=== PATIENT | female | born 1960 | race Caucasian/White ===

== ENCOUNTER 2021-03-08 09:20 | Inpatient (IN) | payer MEDICARE, OTHER ==
[2021-03-08] VITALS (27 sets, daily range): BP systolic 61–140; BP diastolic 30–98
[~2021-03-08] VITALS: Ht 162.6 cm; Wt 97.1 kg
[2021-03-08] MEDS ORDERED: DEXAMETHASONE 10 MG/ML VIAL IV ONE (09:30)
[2021-03-08] MEDS ORDERED: CEFTRIAXONE 1 G PREMIX 50 ML IV ONE (09:30)
[2021-03-08] MEDS ORDERED: AZITHROMYCIN 500 MG in DEXT 5% WATER 250 ML IV ONE (09:30)
[2021-03-08 10:04] LABS: BASOPHILS % 0.7 % (0.0-2.0); EOSINOPHILS % 0.2 % (0.0-5.0); HEMOGLOBIN. 12.2 g/dL (12.0-16.0); LYMPHOCYTES % 7.2 % (20.0-50.0); MEAN CORPUSCULAR HEMOGLOBIN 23.2 pg (28.0-32.0); MEAN PLATELET VOLUME 8.5 fl (7.4-10.4); MONOCYTES % 4.4 % (2.0-8.0); NEUTROPHILS % 87.5 % (40.0-76.0); PLATELET 352 x1000/uL (130-400); RED BLOOD CELL COUNT 5.27 mill/uL (4.2-5.4); RED CELL DISTRIBUTION WIDTH 21.1 % (11.6-14.6)
[2021-03-08 10:12] LABS: CHLORIDE 107 mEq/L (98-107)
[2021-03-08 10:14] LABS: D-DIMER 0.89 mg/L FEU (<0.50); PROTHROMBIN TIME 10.9 sec (9.6-11.0)
[2021-03-08 10:18] LABS: C REACTIVE PROTEIN QUANT 3.1 mg/L (0.0-3.0)
[2021-03-08 10:21] LABS: CREATINE KINASE 65 IU/L (26-192)
[2021-03-08] MEDS ORDERED: AZITHROMYCIN 500 MG in DEXT 5% WATER 250 ML IV SCH (10:30)
[2021-03-08 10:39] LABS: BG BASE EXCESS -5.3 mmol/L (-2.0-2.0); BG CARBOXYHEMOGLOBIN 3.4 % (0.5-1.5); BG DEOXYHEMOGLOBIN 7.5 % (0.0-5.0); BG HCO3 ACT 24.5 mmol/L (22.0-26.0); BG METHEMOGLOBIN 0.2 % (0.0-1.5); BG OXYGEN SATURATION 92.2 % (92.0-98.5); BG OXYHEMOGLOBIN 88.9 % (94.0-97.0); BG PH 7.168 (7.350-7.450); BG PO2 73.8 mmHg (75.0-100.0); BG SAMPLE SITE RIGHT RADIAL; BG TOTAL HEMOGLOBIN 13.2 g/dL (12.0-18.0); BG VENT MODE MASK - BIPAP
[2021-03-08] MEDS ORDERED: INSULIN REGULAR (HUMULIN R) 300UNITS/3ML VIAL IV ONE (10:45)
[2021-03-08] MEDS ORDERED: DEXTROSE 50% WATER 50ML SYRINGE IV ONE (10:45)
[2021-03-08] MEDS ORDERED: SODIUM BICARBONATE 8.4% 1 MEQ/ML 50ML SYR IV ONE (10:45)
[2021-03-08] MEDS ORDERED: CALCIUM CHLORIDE 1GM/10ML SYR IV ONE (10:45)
[2021-03-08] MEDS ORDERED: ALBUTEROL (0.083%) 2.5MG/3ML NEB HHN ONE (10:45)
[2021-03-08] MEDS ORDERED: LIDOCAINE HCL 1% 20ML VIAL (Pyxis) INJ ONE (11:22)
[2021-03-08] MEDS ORDERED: PIPERACILLIN/TAZ 3.375G PREMIX 50 ML IV NR (11:45)
[2021-03-08] MEDS ORDERED: CLONIDINE 0.1MG TABLET PO PRN (11:45)
[2021-03-08] MEDS ORDERED: ACETAMINOPHEN 325MG TABLET PO PRN (11:45)
[2021-03-08] MEDS ORDERED: ONDANSETRON HCL 4MG/2ML INJ IV PRN (11:45)
[2021-03-08] MEDS ORDERED: ENOXAPARIN 40MG/0.4ML SYR SUBCUT SCH (12:00)
[2021-03-08] MEDS ORDERED: VANCOMYCIN 1 G PREMIX 200 ML IV NR ×2 (12:00→14:00)
[2021-03-08 12:20] LABS: HEPATITIS B SURFACE ANTIGEN NEGATIVE
[2021-03-08 12:42] LABS: BG BASE EXCESS -3.5 mmol/L (-2.0-2.0); BG CARBOXYHEMOGLOBIN 2.6 % (0.5-1.5); BG DEOXYHEMOGLOBIN 9.4 % (0.0-5.0); BG HCO3 ACT 28.4 mmol/L (22.0-26.0); BG METHEMOGLOBIN 0.3 % (0.0-1.5); BG OXYGEN SATURATION 90.3 % (92.0-98.5); BG OXYHEMOGLOBIN 87.7 % (94.0-97.0); BG PCO2 92.1 mmHg (35.0-45.0); BG PH 7.107 (7.350-7.450); BG PO2 72.1 mmHg (75.0-100.0); BG SAMPLE SITE RIGHT RADIAL; BG TOTAL HEMOGLOBIN 13.5 g/dL (12.0-18.0); BG VENT MODE MASK - BIPAP
[2021-03-08 15:13] LABS: CREATINE KINASE 54 IU/L (26-192)
[2021-03-08 15:14] LABS: CREATINE KINASE MB FRACTION 2.1 ng/mL (0.5-3.6)
[2021-03-08] MEDS ORDERED: VANCOMYCIN 2,000 MG in DEXT 5% WATER 500 ML IV NR (16:00)
[2021-03-08] MEDS ORDERED: ATOR20TA65 PO (16:52)
[2021-03-08] MEDS ORDERED: RISP1 PO (16:52)
[2021-03-08] MEDS ORDERED: SIMV-46 PO (16:52)
[2021-03-08] MEDS ORDERED: ASPI-1406 PO (16:52)
[2021-03-08] MEDS ORDERED: BENA10TA74 PO (16:52)
[2021-03-08] MEDS ORDERED: HYDR50CA5 PO (16:52)
[2021-03-08] MEDS ORDERED: RISP05 MT (16:52)
[2021-03-08] MEDS ORDERED: TOPUD MT (16:52)
[2021-03-08] MEDS ORDERED: OLME20TA22 PO (16:52)
[2021-03-08] MEDS ORDERED: ESCI20TA37 PO (16:53)
[2021-03-08] MEDS ORDERED: LORA10TA7 PO (16:53)
[2021-03-08] MEDS ORDERED: METF-416 MT (16:53)
[2021-03-08] MEDS ORDERED: TRIC160 MT (16:53)
[2021-03-08] MEDS ORDERED: HYDR12.54 PO (16:53)
[2021-03-08] MEDS ORDERED: SERT-112 PO (16:53)
[2021-03-08] MEDS: IPRATROPIUM/ALBUTEROL 0.5-3(2.5)MG/3ML NEB HHN SCH ×2 (17:00→20:06)
[2021-03-08] MEDS ORDERED: DEXTROSE 50% WATER 50ML SYRINGE IV PRN (17:30)
[2021-03-08] MEDS: INSULIN LISPRO 100 UNITS/ML SUBCUT SCH ×2 (18:00→23:35)
[2021-03-08] MEDS: METHYLPREDNISOLONE SOD SUCC 40 MG/ML VIAL IV SCH ×2 (18:00→18:04)
[2021-03-08] MEDS: PANTOPRAZOLE SODIUM 40 MG/VIAL IV SCH (18:05)
[2021-03-08] MEDS: BLOOD SUGAR DIAGNOSTIC STRIP TEST SCH ×2 (18:06→23:32)
[2021-03-08] MEDS: DEXT 5%/0.9% NACL 1,000 ML IV SCH (18:06)
[2021-03-08 18:27] LABS: BG BASE EXCESS -2.6 mmol/L (-2.0-2.0); BG DEOXYHEMOGLOBIN 5.2 % (0.0-5.0); BG FRACTION INSPIRED OXYGEN 60; BG HCO3 ACT 27.5 mmol/L (22.0-26.0); BG METHEMOGLOBIN 0.2 % (0.0-1.5); BG OXYGEN SATURATION 94.7 % (92.0-98.5); BG OXYHEMOGLOBIN 93.6 % (94.0-97.0); BG PCO2 75.5 mmHg (35.0-45.0); BG PH 7.179 (7.350-7.450); BG PO2 81.3 mmHg (75.0-100.0); BG SAMPLE SITE RIGHT RADIAL; BG TOTAL HEMOGLOBIN 13.2 g/dL (12.0-18.0); BG VENT MODE MASK - BIPAP
[2021-03-08] MEDS ORDERED: INSULIN LISPRO 100 UNITS/ML SUBCUT SCH (21:00)
[2021-03-08] MEDS ORDERED: PIPERACILLIN/TAZOBACTAM 3.375G in DEXT 5% WATER 50ML IV SCH (22:00)
[2021-03-08] MEDS: PIPERACILLIN/TAZOBACTAM 3.375G in DEXT 5% WATER 50ML IV SCH (23:04)
[2021-03-09] VITALS (58 sets, daily range): BP systolic 96–150; BP diastolic 50–99
[2021-03-09 00:02] LABS: CREATINE KINASE 64 IU/L (26-192)
[2021-03-09 00:03] LABS: CREATINE KINASE MB FRACTION 1.3 ng/mL (0.5-3.6)
[2021-03-09] MEDS: IPRATROPIUM/ALBUTEROL 0.5-3(2.5)MG/3ML NEB HHN SCH ×7 (00:05→20:19)
[2021-03-09] MEDS: DEXT 5%/0.9% NACL 1,000 ML IV SCH ×2 (01:30→08:19)
[2021-03-09] MEDS: METHYLPREDNISOLONE SOD SUCC 40 MG/ML VIAL IV SCH ×4 (01:50→17:23)
[2021-03-09] MEDS: PIPERACILLIN/TAZOBACTAM 3.375G in DEXT 5% WATER 50ML IV SCH ×3 (05:01→21:01)
[2021-03-09] MEDS: INSULIN LISPRO 100 UNITS/ML SUBCUT SCH ×3 (05:09→17:23)
[2021-03-09] MEDS: BLOOD SUGAR DIAGNOSTIC STRIP TEST SCH ×3 (05:09→17:23)
[2021-03-09] MEDS: ENOXAPARIN 30MG/0.3ML SYR SUBCUT SCH ×2 (08:18→21:01)
[2021-03-09] MEDS: PANTOPRAZOLE SODIUM 40 MG/VIAL IV SCH (08:18)
[2021-03-09 10:31] LABS: BG BASE EXCESS 2.4 mmol/L (-2.0-2.0); BG CARBOXYHEMOGLOBIN 0.3 % (0.5-1.5); BG DEOXYHEMOGLOBIN 5.3 % (0.0-5.0); BG FRACTION INSPIRED OXYGEN 60; BG HCO3 ACT 29.4 mmol/L (22.0-26.0); BG METHEMOGLOBIN 0.3 % (0.0-1.5); BG OXYGEN SATURATION 94.7 % (92.0-98.5); BG OXYHEMOGLOBIN 94.1 % (94.0-97.0); BG PCO2 55.7 mmHg (35.0-45.0); BG PO2 74.5 mmHg (75.0-100.0); BG SAMPLE SITE RIGHT RADIAL; BG TOTAL HEMOGLOBIN 13.4 g/dL (12.0-18.0); BG TOTAL RESPIRATORY RATE 24 b/min; BG VENT MODE MASK - BIPAP
[2021-03-09] MEDS ORDERED: VANCOMYCIN 750 MG PREMIX 150 ML IV SCH (13:00)
[2021-03-09 15:07] LABS: BG CARBOXYHEMOGLOBIN 0.9 % (0.5-1.5); BG DEOXYHEMOGLOBIN 7.3 % (0.0-5.0); BG FRACTION INSPIRED OXYGEN 100; BG HCO3 ACT 25.2 mmol/L (22.0-26.0); BG METHEMOGLOBIN 0.2 % (0.0-1.5); BG OXYGEN SATURATION 92.6 % (92.0-98.5); BG OXYHEMOGLOBIN 91.6 % (94.0-97.0); BG PCO2 47.9 mmHg (35.0-45.0); BG PH 7.339 (7.350-7.450); BG PO2 68.5 mmHg (75.0-100.0); BG SAMPLE SITE RIGHT RADIAL; BG TOTAL HEMOGLOBIN 13.1 g/dL (12.0-18.0); BG VENT MODE MASK - NRB
[2021-03-09] MEDS ORDERED: DEXTROSE 50% WATER 50ML SYRINGE IV NR (20:15)
[2021-03-09] MEDS ORDERED: INSULIN REGULAR (HUMULIN R) 300UNITS/3ML VIAL IV NR (20:15)
[2021-03-09] MEDS ORDERED: CALCIUM CHLORIDE 1,000 MG in DEXT 5% WATER 90 ML IV NR (21:30)
[2021-03-10] VITALS (24 sets, daily range): BP systolic 91–132; BP diastolic 50–75
[2021-03-10] MEDS: BLOOD SUGAR DIAGNOSTIC STRIP TEST SCH ×5 (00:18→23:19)
[2021-03-10] MEDS: METHYLPREDNISOLONE SOD SUCC 40 MG/ML VIAL IV SCH ×5 (00:26→23:07)
[2021-03-10] MEDS: IPRATROPIUM/ALBUTEROL 0.5-3(2.5)MG/3ML NEB HHN SCH ×6 (00:59→19:59)
[2021-03-10 04:39] LABS: BASOPHILS % 0.5 % (0.0-2.0); HEMATOCRIT. 42.1 % (36.0-48.0); LYMPHOCYTES % 9.1 % (20.0-50.0); MEAN CORPUSCULAR HEMOGLOBIN 22.6 pg (28.0-32.0); MEAN CORPUSCULAR VOLUME 72.9 fL (81.0-99.0); MEAN PLATELET VOLUME 8.5 fl (7.4-10.4); MONOCYTES % 4.5 % (2.0-8.0); NEUTROPHILS % 85.9 % (40.0-76.0); PLATELET 421 x1000/uL (130-400); RED BLOOD CELL COUNT 5.77 mill/uL (4.2-5.4); RED CELL DISTRIBUTION WIDTH 20.4 % (11.6-14.6)
[2021-03-10] MEDS: PIPERACILLIN/TAZOBACTAM 3.375G in DEXT 5% WATER 50ML IV SCH ×4 (05:11→23:00)
[2021-03-10] MEDS: INSULIN LISPRO 100 UNITS/ML SUBCUT SCH ×5 (05:26→23:19)
[2021-03-10] MEDS ORDERED: DEXTROSE 50% WATER 50ML SYRINGE IV ONE (07:45)
[2021-03-10] MEDS ORDERED: SODIUM POLYSTYRENE SULFONATE 15 G/60 ML BOT PO SCH (07:45)
[2021-03-10] MEDS ORDERED: INSULIN REGULAR (HUMULIN R) 300UNITS/3ML VIAL IV SCH (07:45)
[2021-03-10] MEDS: ENOXAPARIN 30MG/0.3ML SYR SUBCUT SCH ×2 (08:00→20:55)
[2021-03-10] MEDS: PANTOPRAZOLE SODIUM 40 MG/VIAL IV SCH (08:00)
[2021-03-10] MEDS: DEXT 5%/0.9% NACL 1,000 ML IV SCH (09:04)
[2021-03-10] MEDS ORDERED: VANCOMYCIN 750 MG PREMIX 150 ML IV SCH (11:00)
[2021-03-10] MEDS: FUROSEMIDE 40MG/4ML VIAL IVP SCH (23:06)
[2021-03-10] MEDS: GUAIFENESIN/CODEINE 200-20MG/10ML UDC PO PRN (23:41)
[2021-03-11] VITALS (22 sets, daily range): BP systolic 91–156; BP diastolic 53–100
[2021-03-11] MEDS: IPRATROPIUM/ALBUTEROL 0.5-3(2.5)MG/3ML NEB HHN SCH ×6 (00:20→20:18)
[2021-03-11] MEDS: INSULIN LISPRO 100 UNITS/ML SUBCUT SCH ×4 (05:14→23:53)
[2021-03-11] MEDS: BLOOD SUGAR DIAGNOSTIC STRIP TEST SCH ×4 (05:16→23:52)
[2021-03-11] MEDS: PIPERACILLIN/TAZOBACTAM 3.375G in DEXT 5% WATER 50ML IV SCH ×4 (05:16→23:52)
[2021-03-11] MEDS: METHYLPREDNISOLONE SOD SUCC 40 MG/ML VIAL IV SCH ×4 (05:16→23:51)
[2021-03-11] MEDS: GUAIFENESIN/CODEINE 200-20MG/10ML UDC PO PRN (05:16)
[2021-03-11 05:27] LABS: BASOPHILS % 0.3 % (0.0-2.0); HEMATOCRIT. 46.3 % (36.0-48.0); HEMOGLOBIN. 14.5 g/dL (12.0-16.0); MEAN CORPUSCULAR HEMOGLOBIN 22.7 pg (28.0-32.0); MEAN CORPUSCULAR VOLUME 72.3 fL (81.0-99.0); MEAN PLATELET VOLUME 8.4 fl (7.4-10.4); NEUTROPHILS % 86.7 % (40.0-76.0); PLATELET 469 x1000/uL (130-400); RED CELL DISTRIBUTION WIDTH 20.2 % (11.6-14.6)
[2021-03-11] MEDS: FUROSEMIDE 40MG/4ML VIAL IVP SCH (08:24)
[2021-03-11] MEDS: ENOXAPARIN 30MG/0.3ML SYR SUBCUT SCH ×2 (08:24→20:39)
[2021-03-11] MEDS: PANTOPRAZOLE SODIUM 40 MG/VIAL IV SCH (08:24)
[2021-03-11 11:34] LABS: BG BASE EXCESS 5.3 mmol/L (-2.0-2.0); BG CARBOXYHEMOGLOBIN 0.5 % (0.5-1.5); BG DEOXYHEMOGLOBIN 4.3 % (0.0-5.0); BG FRACTION INSPIRED OXYGEN 100; BG HCO3 ACT 31.5 mmol/L (22.0-26.0); BG METHEMOGLOBIN 0.3 % (0.0-1.5); BG OXYGEN SATURATION 95.7 % (92.0-98.5); BG OXYHEMOGLOBIN 94.9 % (94.0-97.0); BG PH 7.408 (7.350-7.450); BG PO2 79.1 mmHg (75.0-100.0); BG SAMPLE SITE LEFT RADIAL; BG TOTAL HEMOGLOBIN 16.1 g/dL (12.0-18.0); BG TOTAL RESPIRATORY RATE 34 b/min; BG VENT MODE MASK - BIPAP
[2021-03-12] VITALS: BP 112/69
[2021-03-12] MEDS: IPRATROPIUM/ALBUTEROL 0.5-3(2.5)MG/3ML NEB HHN SCH ×6 (01:17→20:52)
[2021-03-12 04:00] VITALS: BP 112/72
[2021-03-12] MEDS: BLOOD SUGAR DIAGNOSTIC STRIP TEST SCH ×4 (06:00→23:41)
[2021-03-12] MEDS: METHYLPREDNISOLONE SOD SUCC 40 MG/ML VIAL IV SCH ×4 (06:05→23:40)
[2021-03-12] MEDS: PIPERACILLIN/TAZOBACTAM 3.375G in DEXT 5% WATER 50ML IV SCH ×4 (06:05→23:40)
[2021-03-12] MEDS: INSULIN LISPRO 100 UNITS/ML SUBCUT SCH ×4 (06:07→23:43)
[2021-03-12 07:10] LABS: BASOPHILS % 0.1 % (0.0-2.0); HEMATOCRIT. 47.9 % (36.0-48.0); HEMOGLOBIN. 15.1 g/dL (12.0-16.0); LYMPHOCYTES % 10.6 % (20.0-50.0); MEAN CORPUSCULAR VOLUME 73.2 fL (81.0-99.0); MEAN PLATELET VOLUME 8.3 fl (7.4-10.4); MONOCYTES % 4.5 % (2.0-8.0); NEUTROPHILS % 84.8 % (40.0-76.0); PLATELET 419 x1000/uL (130-400); RED BLOOD CELL COUNT 6.54 mill/uL (4.2-5.4); RED CELL DISTRIBUTION WIDTH 20.3 % (11.6-14.6)
[2021-03-12 08:00] VITALS: BP 110/69
[2021-03-12] MEDS: PANTOPRAZOLE SODIUM 40 MG/VIAL IV SCH (08:21)
[2021-03-12] MEDS: FUROSEMIDE 40MG/4ML VIAL IVP SCH (08:21)
[2021-03-12] MEDS: ENOXAPARIN 30MG/0.3ML SYR SUBCUT SCH ×2 (08:21→20:49)
[2021-03-12 12:00] VITALS: BP 108/68
[2021-03-12] MEDS: GUAIFENESIN/CODEINE 200-20MG/10ML UDC PO PRN (13:17)
[2021-03-12 16:00] VITALS: BP 127/73
[2021-03-12 16:53] LABS: PHOSPHORUS 5.4 mg/dL (2.5-4.9)
[2021-03-12 20:00] VITALS: BP 116/73
[2021-03-13] VITALS: BP 122/78
[2021-03-13] MEDS: IPRATROPIUM/ALBUTEROL 0.5-3(2.5)MG/3ML NEB HHN SCH ×6 (00:52→20:45)
[2021-03-13 04:00] VITALS: BP 123/82
[2021-03-13] MEDS: PIPERACILLIN/TAZOBACTAM 3.375G in DEXT 5% WATER 50ML IV SCH ×4 (05:52→23:43)
[2021-03-13] MEDS: METHYLPREDNISOLONE SOD SUCC 40 MG/ML VIAL IV SCH ×4 (05:52→23:43)
[2021-03-13] MEDS: INSULIN LISPRO 100 UNITS/ML SUBCUT SCH ×4 (05:53→23:50)
[2021-03-13] MEDS: BLOOD SUGAR DIAGNOSTIC STRIP TEST SCH ×4 (05:53→23:44)
[2021-03-13 06:38] LABS: BASOPHILS % 0.1 % (0.0-2.0); HEMATOCRIT. 47.7 % (36.0-48.0); LYMPHOCYTES % 7.1 % (20.0-50.0); MEAN CORPUSCULAR HEMOGLOBIN 23.1 pg (28.0-32.0); MEAN CORPUSCULAR VOLUME 73.6 fL (81.0-99.0); MEAN PLATELET VOLUME 8.8 fl (7.4-10.4); MONOCYTES % 3.4 % (2.0-8.0); NEUTROPHILS % 89.4 % (40.0-76.0); PLATELET 409 x1000/uL (130-400); RED BLOOD CELL COUNT 6.49 mill/uL (4.2-5.4); RED CELL DISTRIBUTION WIDTH 19.7 % (11.6-14.6)
[2021-03-13 08:00] VITALS: BP 148/80
[2021-03-13] MEDS ORDERED: SODIUM CHLORIDE 0.9% 1,000 ML IV ONE (08:00)
[2021-03-13] MEDS: FAMOTIDINE 20MG TABLET PO SCH (09:26)
[2021-03-13] MEDS: ENOXAPARIN 30MG/0.3ML SYR SUBCUT SCH ×2 (09:26→20:34)
[2021-03-13 16:00] VITALS: BP 151/61
[2021-03-13 20:00] VITALS: BP 130/83
[2021-03-14] VITALS (8 sets, daily range): BP systolic 113–151; BP diastolic 68–78
[2021-03-14] MEDS: IPRATROPIUM/ALBUTEROL 0.5-3(2.5)MG/3ML NEB HHN SCH ×6 (00:46→20:18)
[2021-03-14] MEDS: BLOOD SUGAR DIAGNOSTIC STRIP TEST SCH ×3 (05:36→17:42)
[2021-03-14] MEDS: METHYLPREDNISOLONE SOD SUCC 40 MG/ML VIAL IV SCH ×3 (05:36→18:04)
[2021-03-14] MEDS: INSULIN LISPRO 100 UNITS/ML SUBCUT SCH ×3 (06:16→18:04)
[2021-03-14] MEDS: FAMOTIDINE 20MG TABLET PO SCH (08:56)
[2021-03-14] MEDS: ENOXAPARIN 30MG/0.3ML SYR SUBCUT SCH ×2 (08:57→20:39)
[2021-03-14 14:58] LABS: BG BASE EXCESS 5.2 mmol/L (-2.0-2.0); BG CARBOXYHEMOGLOBIN 0.7 % (0.5-1.5); BG DEOXYHEMOGLOBIN 13.5 % (0.0-5.0); BG HCO3 ACT 30.8 mmol/L (22.0-26.0); BG METHEMOGLOBIN 0.3 % (0.0-1.5); BG OXYGEN SATURATION 86.4 % (92.0-98.5); BG OXYHEMOGLOBIN 85.5 % (94.0-97.0); BG PCO2 48.3 mmHg (35.0-45.0); BG PH 7.423 (7.350-7.450); BG SAMPLE SITE RIGHT RADIAL; BG TOTAL HEMOGLOBIN 15.9 g/dL (12.0-18.0); BG VENT MODE VAPOTHERM
[2021-03-14 16:25] LABS: BASOPHILS % 0.2 % (0.0-2.0); EOSINOPHILS % 0.2 % (0.0-5.0); HEMATOCRIT. 46.8 % (36.0-48.0); HEMOGLOBIN. 14.6 g/dL (12.0-16.0); LYMPHOCYTES % 12.4 % (20.0-50.0); MEAN CORPUSCULAR HEMOGLOBIN 22.7 pg (28.0-32.0); MEAN CORPUSCULAR VOLUME 72.7 fL (81.0-99.0); MEAN PLATELET VOLUME 8.7 fl (7.4-10.4); MONOCYTES % 5.6 % (2.0-8.0); NEUTROPHILS % 81.6 % (40.0-76.0); PLATELET 408 x1000/uL (130-400); RED BLOOD CELL COUNT 6.43 mill/uL (4.2-5.4); RED CELL DISTRIBUTION WIDTH 19.3 % (11.6-14.6)
[2021-03-15] VITALS (7 sets, daily range): BP systolic 105–139; BP diastolic 67–75
[2021-03-15] MEDS: IPRATROPIUM/ALBUTEROL 0.5-3(2.5)MG/3ML NEB HHN SCH ×6 (00:19→20:23)
[2021-03-15] MEDS: BLOOD SUGAR DIAGNOSTIC STRIP TEST SCH ×5 (00:21→23:27)
[2021-03-15] MEDS: INSULIN LISPRO 100 UNITS/ML SUBCUT SCH ×5 (00:22→23:35)
[2021-03-15] MEDS: METHYLPREDNISOLONE SOD SUCC 40 MG/ML VIAL IV SCH ×5 (00:22→23:27)
[2021-03-15] MEDS: SODIUM CHLORIDE 0.9% 1,000 ML IV SCH ×2 (00:24→17:38)
[2021-03-15 07:52] LABS: HEMATOCRIT. 46.6 % (36.0-48.0); HEMOGLOBIN. 14.8 g/dL (12.0-16.0); MEAN CORPUSCULAR HEMOGLOBIN 23.3 pg (28.0-32.0); MEAN CORPUSCULAR VOLUME 73.2 fL (81.0-99.0); MEAN PLATELET VOLUME 8.9 fl (7.4-10.4); PLATELET 392 x1000/uL (130-400); RED BLOOD CELL COUNT 6.36 mill/uL (4.2-5.4); RED CELL DISTRIBUTION WIDTH 19.7 % (11.6-14.6)
[2021-03-15 08:31] LABS: CHLORIDE 101 mEq/L (98-107)
[2021-03-15 09:06] LABS: PLATELET ESTIMATE NORMAL
[2021-03-15] MEDS: ENOXAPARIN 30MG/0.3ML SYR SUBCUT SCH ×2 (09:06→21:11)
[2021-03-15] MEDS: FAMOTIDINE 20MG TABLET PO SCH (09:06)
[2021-03-16] VITALS (9 sets, daily range): BP systolic 115–146; BP diastolic 65–80
[2021-03-16] MEDS: IPRATROPIUM/ALBUTEROL 0.5-3(2.5)MG/3ML NEB HHN SCH ×5 (00:18→20:17)
[2021-03-16] MEDS: METHYLPREDNISOLONE SOD SUCC 40 MG/ML VIAL IV SCH ×3 (05:24→17:44)
[2021-03-16] MEDS: BLOOD SUGAR DIAGNOSTIC STRIP TEST SCH ×4 (05:24→22:51)
[2021-03-16] MEDS: INSULIN LISPRO 100 UNITS/ML SUBCUT SCH ×4 (05:27→22:55)
[2021-03-16 07:48] LABS: BASOPHILS % 0.1 % (0.0-2.0); EOSINOPHILS % 0.1 % (0.0-5.0); HEMATOCRIT. 47.2 % (36.0-48.0); HEMOGLOBIN. 14.7 g/dL (12.0-16.0); LYMPHOCYTES % 8.5 % (20.0-50.0); MEAN CORPUSCULAR HEMOGLOBIN 23.1 pg (28.0-32.0); MEAN CORPUSCULAR VOLUME 74.3 fL (81.0-99.0); MEAN PLATELET VOLUME 9.2 fl (7.4-10.4); MONOCYTES % 3.1 % (2.0-8.0); NEUTROPHILS % 88.2 % (40.0-76.0); PLATELET 352 x1000/uL (130-400); RED BLOOD CELL COUNT 6.35 mill/uL (4.2-5.4); RED CELL DISTRIBUTION WIDTH 19.7 % (11.6-14.6)
[2021-03-16 08:13] LABS: CHLORIDE 103 mEq/L (98-107)
[2021-03-16] MEDS: FAMOTIDINE 20MG TABLET PO SCH (09:16)
[2021-03-16] MEDS: SODIUM CHLORIDE 0.9% 1,000 ML IV SCH (09:16)
[2021-03-16] MEDS: ENOXAPARIN 30MG/0.3ML SYR SUBCUT SCH ×2 (09:17→21:08)
[2021-03-17] VITALS (14 sets, daily range): BP systolic 119–159; BP diastolic 62–96
[2021-03-17] MEDS: IPRATROPIUM/ALBUTEROL 0.5-3(2.5)MG/3ML NEB HHN SCH ×6 (00:29→21:22)
[2021-03-17] MEDS: METHYLPREDNISOLONE SOD SUCC 40 MG/ML VIAL IV SCH ×5 (00:40→23:24)
[2021-03-17] MEDS: SODIUM CHLORIDE 0.9% 1,000 ML IV SCH ×2 (02:02→17:13)
[2021-03-17] MEDS: BLOOD SUGAR DIAGNOSTIC STRIP TEST SCH ×4 (04:47→23:21)
[2021-03-17] MEDS: INSULIN LISPRO 100 UNITS/ML SUBCUT SCH ×4 (04:58→23:35)
[2021-03-17 05:33] LABS: CHLORIDE 104 mEq/L (98-107)
[2021-03-17 06:24] LABS: BASOPHILS % 0.1 % (0.0-2.0); HEMATOCRIT. 45.7 % (36.0-48.0); HEMOGLOBIN. 14.4 g/dL (12.0-16.0); LYMPHOCYTES % 7.5 % (20.0-50.0); MEAN CORPUSCULAR HEMOGLOBIN 23.3 pg (28.0-32.0); MEAN CORPUSCULAR VOLUME 73.8 fL (81.0-99.0); MEAN PLATELET VOLUME 9.2 fl (7.4-10.4); NEUTROPHILS % 89.4 % (40.0-76.0); PLATELET 389 x1000/uL (130-400); RED CELL DISTRIBUTION WIDTH 19.7 % (11.6-14.6)
[2021-03-17 08:27] LABS: BG CARBOXYHEMOGLOBIN 0.8 % (0.5-1.5); BG DEOXYHEMOGLOBIN 13.6 % (0.0-5.0); BG HCO3 ACT 22.3 mmol/L (22.0-26.0); BG METHEMOGLOBIN 0.3 % (0.0-1.5); BG OXYGEN SATURATION 86.2 % (92.0-98.5); BG OXYHEMOGLOBIN 85.3 % (94.0-97.0); BG PCO2 36.8 mmHg (35.0-45.0); BG PO2 50.1 mmHg (75.0-100.0); BG SAMPLE SITE RIGHT RADIAL; BG TOTAL HEMOGLOBIN 15.7 g/dL (12.0-18.0); BG VENT MODE VAPOTHERM
[2021-03-17] MEDS: FAMOTIDINE 20MG TABLET PO SCH (08:35)
[2021-03-17] MEDS: ENOXAPARIN 30MG/0.3ML SYR SUBCUT SCH ×2 (08:35→20:18)
[2021-03-18] VITALS (12 sets, daily range): BP systolic 106–166; BP diastolic 47–95
[2021-03-18] MEDS: IPRATROPIUM/ALBUTEROL 0.5-3(2.5)MG/3ML NEB HHN SCH ×6 (01:32→20:59)
[2021-03-18] MEDS: BLOOD SUGAR DIAGNOSTIC STRIP TEST SCH ×4 (05:11→23:21)
[2021-03-18] MEDS: INSULIN LISPRO 100 UNITS/ML SUBCUT SCH ×4 (05:24→23:21)
[2021-03-18] MEDS: METHYLPREDNISOLONE SOD SUCC 40 MG/ML VIAL IV SCH ×4 (05:24→23:21)
[2021-03-18 06:03] LABS: CHLORIDE 103 mEq/L (98-107)
[2021-03-18 06:19] LABS: HEMATOCRIT. 45.3 % (36.0-48.0); HEMOGLOBIN. 14.4 g/dL (12.0-16.0); MEAN CORPUSCULAR HEMOGLOBIN 23.5 pg (28.0-32.0); MEAN CORPUSCULAR VOLUME 73.8 fL (81.0-99.0); MEAN PLATELET VOLUME 9.8 fl (7.4-10.4); PLATELET 392 x1000/uL (130-400); RED BLOOD CELL COUNT 6.13 mill/uL (4.2-5.4); RED CELL DISTRIBUTION WIDTH 19.4 % (11.6-14.6)
[2021-03-18] MEDS: ENOXAPARIN 30MG/0.3ML SYR SUBCUT SCH ×2 (08:09→20:53)
[2021-03-18] MEDS: FAMOTIDINE 20MG TABLET PO SCH (08:09)
[2021-03-18 20:15] LABS: PLATELET ESTIMATE NORMAL
[2021-03-19] VITALS (12 sets, daily range): BP systolic 113–143; BP diastolic 58–90
[2021-03-19] MEDS: IPRATROPIUM/ALBUTEROL 0.5-3(2.5)MG/3ML NEB HHN SCH ×6 (00:20→20:27)
[2021-03-19] MEDS: METHYLPREDNISOLONE SOD SUCC 40 MG/ML VIAL IV SCH ×3 (05:15→17:37)
[2021-03-19] MEDS: BLOOD SUGAR DIAGNOSTIC STRIP TEST SCH ×4 (05:16→23:38)
[2021-03-19] MEDS: INSULIN LISPRO 100 UNITS/ML SUBCUT SCH ×3 (05:16→18:13)
[2021-03-19 05:19] LABS: CHLORIDE 103 mEq/L (98-107)
[2021-03-19 05:30] LABS: PHOSPHORUS 3.4 mg/dL (2.5-4.9)
[2021-03-19 05:53] LABS: HEMATOCRIT. 48.4 % (36.0-48.0); HEMOGLOBIN. 14.8 g/dL (12.0-16.0); MEAN CORPUSCULAR HEMOGLOBIN 22.7 pg (28.0-32.0); MEAN CORPUSCULAR VOLUME 74.3 fL (81.0-99.0); MEAN PLATELET VOLUME 9.9 fl (7.4-10.4); PLATELET 374 x1000/uL (130-400); RED BLOOD CELL COUNT 6.51 mill/uL (4.2-5.4); RED CELL DISTRIBUTION WIDTH 19.6 % (11.6-14.6)
[2021-03-19] MEDS: FAMOTIDINE 20MG TABLET PO SCH (08:48)
[2021-03-19] MEDS: ENOXAPARIN 30MG/0.3ML SYR SUBCUT SCH ×2 (08:48→20:27)
[2021-03-19] MEDS ORDERED: MAGNESIUM 2 G PREMIX 50 ML IV NR (11:00)
[2021-03-19] MEDS ORDERED: FUROSEMIDE 40MG/4ML VIAL IVP NR (15:45)
[2021-03-19 15:55] LABS: BG BASE EXCESS 3.8 mmol/L (-2.0-2.0); BG CARBOXYHEMOGLOBIN 0.3 % (0.5-1.5); BG HCO3 ACT 29.7 mmol/L (22.0-26.0); BG METHEMOGLOBIN 0.4 % (0.0-1.5); BG OXYGEN SATURATION 86.9 % (92.0-98.5); BG OXYHEMOGLOBIN 86.3 % (94.0-97.0); BG PCO2 48.8 mmHg (35.0-45.0); BG PH 7.402 (7.350-7.450); BG PO2 53.2 mmHg (75.0-100.0); BG SAMPLE SITE RIGHT RADIAL; BG TOTAL HEMOGLOBIN 15.9 g/dL (12.0-18.0); BG VENT MODE VAPOTHERM
[2021-03-19 17:16] LABS: PLATELET ESTIMATE NORMAL
[2021-03-20] VITALS (12 sets, daily range): BP systolic 103–136; BP diastolic 58–83
[2021-03-20] MEDS: METHYLPREDNISOLONE SOD SUCC 40 MG/ML VIAL IV SCH ×3 (00:15→12:35)
[2021-03-20] MEDS: IPRATROPIUM/ALBUTEROL 0.5-3(2.5)MG/3ML NEB HHN SCH ×6 (00:17→20:58)
[2021-03-20] MEDS: INSULIN LISPRO 100 UNITS/ML SUBCUT SCH ×4 (00:18→17:27)
[2021-03-20] MEDS: BLOOD SUGAR DIAGNOSTIC STRIP TEST SCH ×3 (05:26→17:03)
[2021-03-20 07:32] LABS: CHLORIDE 100 mEq/L (98-107)
[2021-03-20 07:35] LABS: HEMATOCRIT. 47.5 % (36.0-48.0); HEMOGLOBIN. 14.7 g/dL (12.0-16.0); MEAN CORPUSCULAR HEMOGLOBIN 23.1 pg (28.0-32.0); MEAN CORPUSCULAR VOLUME 74.4 fL (81.0-99.0); MEAN PLATELET VOLUME 9.7 fl (7.4-10.4); PLATELET 349 x1000/uL (130-400); RED BLOOD CELL COUNT 6.38 mill/uL (4.2-5.4); RED CELL DISTRIBUTION WIDTH 19.1 % (11.6-14.6)
[2021-03-20 07:47] LABS: PHOSPHORUS 3.9 mg/dL (2.5-4.9)
[2021-03-20] MEDS: FAMOTIDINE 20MG TABLET PO SCH (08:10)
[2021-03-20] MEDS: ENOXAPARIN 30MG/0.3ML SYR SUBCUT SCH ×2 (08:10→21:15)
[2021-03-20] MEDS ORDERED: MAGNESIUM 2 G PREMIX 50 ML IV NR (13:00)
[2021-03-20 13:55] LABS: PLATELET ESTIMATE NORMAL
[2021-03-20] MEDS: FUROSEMIDE 40MG/4ML VIAL IVP SCH (15:19)
[2021-03-21] VITALS (22 sets, daily range): BP systolic 86–165; BP diastolic 55–112
[2021-03-21] MEDS: METHYLPREDNISOLONE SOD SUCC 40 MG/ML VIAL IV SCH ×2 (00:29→12:28)
[2021-03-21] MEDS: INSULIN LISPRO 100 UNITS/ML SUBCUT SCH ×4 (00:31→18:36)
[2021-03-21] MEDS: BLOOD SUGAR DIAGNOSTIC STRIP TEST SCH ×4 (00:34→18:34)
[2021-03-21] MEDS: IPRATROPIUM/ALBUTEROL 0.5-3(2.5)MG/3ML NEB HHN SCH ×6 (00:41→20:57)
[2021-03-21 06:21] LABS: HEMATOCRIT. 46.7 % (36.0-48.0); HEMOGLOBIN. 14.4 g/dL (12.0-16.0); MEAN CORPUSCULAR HEMOGLOBIN 23.3 pg (28.0-32.0); MEAN CORPUSCULAR VOLUME 75.4 fL (81.0-99.0); MEAN PLATELET VOLUME 9.8 fl (7.4-10.4); PLATELET 385 x1000/uL (130-400); RED BLOOD CELL COUNT 6.19 mill/uL (4.2-5.4); RED CELL DISTRIBUTION WIDTH 18.9 % (11.6-14.6)
[2021-03-21] MEDS: FUROSEMIDE 40MG/4ML VIAL IVP SCH (08:52)
[2021-03-21] MEDS: FAMOTIDINE 20MG TABLET PO SCH (08:52)
[2021-03-21] MEDS: ENOXAPARIN 30MG/0.3ML SYR SUBCUT SCH ×2 (08:54→20:27)
[2021-03-21 13:21] LABS: PLATELET ESTIMATE NORMAL
[2021-03-21] MEDS: INSULIN GLARGINE UD 100 UNITS/ML SYR SUBCUT SCH (22:05)
[2021-03-22] VITALS (12 sets, daily range): BP systolic 84–131; BP diastolic 57–77
[2021-03-22] MEDS: METHYLPREDNISOLONE SOD SUCC 40 MG/ML VIAL IV SCH ×2 (00:22→12:38)
[2021-03-22] MEDS: BLOOD SUGAR DIAGNOSTIC STRIP TEST SCH ×4 (00:27→17:40)
[2021-03-22] MEDS: INSULIN LISPRO 100 UNITS/ML SUBCUT SCH ×4 (00:27→17:47)
[2021-03-22] MEDS: IPRATROPIUM/ALBUTEROL 0.5-3(2.5)MG/3ML NEB HHN SCH ×6 (01:10→20:40)
[2021-03-22 06:08] LABS: CHLORIDE 99 mEq/L (98-107)
[2021-03-22 06:13] LABS: PHOSPHORUS 3.3 mg/dL (2.5-4.9)
[2021-03-22 06:18] LABS: HEMATOCRIT. 45.9 % (36.0-48.0); HEMOGLOBIN. 14.3 g/dL (12.0-16.0); RED CELL DISTRIBUTION WIDTH 19.4 % (11.6-14.6)
[2021-03-22] MEDS: FUROSEMIDE 40MG/4ML VIAL IVP SCH (09:40)
[2021-03-22] MEDS: ENOXAPARIN 30MG/0.3ML SYR SUBCUT SCH ×2 (09:40→21:04)
[2021-03-22] MEDS: FAMOTIDINE 20MG TABLET PO SCH (09:40)
[2021-03-22 14:02] LABS: PLATELET ESTIMATE SLIGHTLY INCREASED
[2021-03-22 14:04] LABS: PLATELET 405 x1000/uL (130-400)
[2021-03-22] MEDS: INSULIN GLARGINE UD 100 UNITS/ML SYR SUBCUT SCH (21:05)
[2021-03-23] VITALS (20 sets, daily range): BP systolic 98–152; BP diastolic 39–84
[2021-03-23] MEDS: BLOOD SUGAR DIAGNOSTIC STRIP TEST SCH ×4 (00:14→17:33)
[2021-03-23] MEDS: IPRATROPIUM/ALBUTEROL 0.5-3(2.5)MG/3ML NEB HHN SCH ×5 (00:27→20:43)
[2021-03-23] MEDS: METHYLPREDNISOLONE SOD SUCC 40 MG/ML VIAL IV SCH ×3 (00:54→22:42)
[2021-03-23] MEDS: INSULIN LISPRO 100 UNITS/ML SUBCUT SCH ×4 (00:55→17:43)
[2021-03-23] MEDS: FUROSEMIDE 40MG/4ML VIAL IVP SCH (08:33)
[2021-03-23] MEDS: ENOXAPARIN 30MG/0.3ML SYR SUBCUT SCH ×2 (08:33→22:42)
[2021-03-23] MEDS: FAMOTIDINE 20MG TABLET PO SCH (08:33)
[2021-03-23] MEDS: INSULIN GLARGINE UD 100 UNITS/ML SYR SUBCUT SCH (22:46)
[2021-03-24] VITALS (21 sets, daily range): BP systolic 99–154; BP diastolic 53–95
[2021-03-24] MEDS: IPRATROPIUM/ALBUTEROL 0.5-3(2.5)MG/3ML NEB HHN SCH ×6 (00:24→20:24)
[2021-03-24] MEDS: INSULIN LISPRO 100 UNITS/ML SUBCUT SCH ×5 (00:27→23:25)
[2021-03-24] MEDS: BLOOD SUGAR DIAGNOSTIC STRIP TEST SCH ×5 (00:33→23:25)
[2021-03-24] MEDS: ENOXAPARIN 30MG/0.3ML SYR SUBCUT SCH ×2 (08:52→21:00)
[2021-03-24] MEDS: FUROSEMIDE 40MG/4ML VIAL IVP SCH (08:53)
[2021-03-24] MEDS: FAMOTIDINE 20MG TABLET PO SCH (08:53)
[2021-03-24] MEDS: METHYLPREDNISOLONE SOD SUCC 40 MG/ML VIAL IV SCH ×2 (12:14→23:24)
[2021-03-24] MEDS: INSULIN GLARGINE UD 100 UNITS/ML SYR SUBCUT SCH (21:00)
[2021-03-25] VITALS (13 sets, daily range): BP systolic 97–130; BP diastolic 53–81
[2021-03-25] MEDS: IPRATROPIUM/ALBUTEROL 0.5-3(2.5)MG/3ML NEB HHN SCH ×6 (00:23→20:58)
[2021-03-25] MEDS: BLOOD SUGAR DIAGNOSTIC STRIP TEST SCH ×4 (05:06→23:35)
[2021-03-25] MEDS: INSULIN LISPRO 100 UNITS/ML SUBCUT SCH ×4 (05:06→23:38)
[2021-03-25] MEDS: FUROSEMIDE 40MG/4ML VIAL IVP SCH (08:48)
[2021-03-25] MEDS: ENOXAPARIN 30MG/0.3ML SYR SUBCUT SCH ×2 (08:49→21:18)
[2021-03-25] MEDS: FAMOTIDINE 20MG TABLET PO SCH (08:50)
[2021-03-25] MEDS: METHYLPREDNISOLONE SOD SUCC 40 MG/ML VIAL IV SCH (12:38)
[2021-03-25 17:25] LABS: BG BASE EXCESS 2.5 mmol/L (-2.0-2.0); BG CARBOXYHEMOGLOBIN 0.5 % (0.5-1.5); BG DEOXYHEMOGLOBIN 3.7 % (0.0-5.0); BG FRACTION INSPIRED OXYGEN 40; BG HCO3 ACT 27.6 mmol/L (22.0-26.0); BG METHEMOGLOBIN 0.3 % (0.0-1.5); BG OXYGEN SATURATION 96.3 % (92.0-98.5); BG OXYHEMOGLOBIN 95.5 % (94.0-97.0); BG PCO2 44.4 mmHg (35.0-45.0); BG PH 7.412 (7.350-7.450); BG PO2 85.6 mmHg (75.0-100.0); BG SAMPLE SITE RIGHT RADIAL; BG TOTAL HEMOGLOBIN 15.1 g/dL (12.0-18.0); BG VENT MODE HIGH FLOW
[2021-03-25 18:44] LABS: HEMATOCRIT. 45.3 % (36.0-48.0); HEMOGLOBIN. 14.2 g/dL (12.0-16.0); MEAN CORPUSCULAR HEMOGLOBIN 23.2 pg (28.0-32.0); MEAN CORPUSCULAR VOLUME 74.2 fL (81.0-99.0); MEAN PLATELET VOLUME 9.3 fl (7.4-10.4); PLATELET 399 x1000/uL (130-400); RED BLOOD CELL COUNT 6.11 mill/uL (4.2-5.4); RED CELL DISTRIBUTION WIDTH 19.1 % (11.6-14.6)
[2021-03-25 18:48] LABS: CHLORIDE 96 mEq/L (98-107)
[2021-03-25 20:30] LABS: PLATELET ESTIMATE NORMAL
[2021-03-25] MEDS: INSULIN GLARGINE UD 100 UNITS/ML SYR SUBCUT SCH (21:18)
[2021-03-26] VITALS (11 sets, daily range): BP systolic 101–131; BP diastolic 44–85
[2021-03-26] MEDS: IPRATROPIUM/ALBUTEROL 0.5-3(2.5)MG/3ML NEB HHN SCH ×6 (00:36→20:49)
[2021-03-26] MEDS: BLOOD SUGAR DIAGNOSTIC STRIP TEST SCH ×4 (05:05→23:53)
[2021-03-26] MEDS: INSULIN LISPRO 100 UNITS/ML SUBCUT SCH ×4 (05:05→23:54)
[2021-03-26 06:07] LABS: CHLORIDE 97 mEq/L (98-107)
[2021-03-26 06:17] LABS: BASOPHILS % 0.2 % (0.0-2.0); EOSINOPHILS % 1.3 % (0.0-5.0); HEMATOCRIT. 46.8 % (36.0-48.0); HEMOGLOBIN. 14.6 g/dL (12.0-16.0); LYMPHOCYTES % 18.5 % (20.0-50.0); MEAN CORPUSCULAR HEMOGLOBIN 23.4 pg (28.0-32.0); MEAN CORPUSCULAR VOLUME 74.8 fL (81.0-99.0); MEAN PLATELET VOLUME 9.7 fl (7.4-10.4); MONOCYTES % 5.1 % (2.0-8.0); NEUTROPHILS % 74.9 % (40.0-76.0); PLATELET 385 x1000/uL (130-400); RED BLOOD CELL COUNT 6.26 mill/uL (4.2-5.4); RED CELL DISTRIBUTION WIDTH 18.8 % (11.6-14.6)
[2021-03-26] MEDS: FUROSEMIDE 40MG/4ML VIAL IVP SCH (08:22)
[2021-03-26] MEDS: METHYLPREDNISOLONE SOD SUCC 40 MG/ML VIAL IV SCH (08:22)
[2021-03-26] MEDS: FAMOTIDINE 20MG TABLET PO SCH (08:22)
[2021-03-26] MEDS: ENOXAPARIN 30MG/0.3ML SYR SUBCUT SCH ×2 (08:23→21:15)
[2021-03-26] MEDS ORDERED: POTASSIUM CHLORIDE 20MEQ TABLET SR PO NR ×2 (17:15→18:00)
[2021-03-26] MEDS: INSULIN GLARGINE UD 100 UNITS/ML SYR SUBCUT SCH (21:15)
[2021-03-27] VITALS (12 sets, daily range): BP systolic 101–144; BP diastolic 55–94
[2021-03-27] MEDS: IPRATROPIUM/ALBUTEROL 0.5-3(2.5)MG/3ML NEB HHN SCH ×6 (00:52→20:15)
[2021-03-27] MEDS: BLOOD SUGAR DIAGNOSTIC STRIP TEST SCH ×4 (05:03→23:41)
[2021-03-27] MEDS: INSULIN LISPRO 100 UNITS/ML SUBCUT SCH ×4 (05:03→23:54)
[2021-03-27] MEDS: FAMOTIDINE 20MG TABLET PO SCH (10:30)
[2021-03-27] MEDS: FUROSEMIDE 40MG/4ML VIAL IVP SCH (10:30)
[2021-03-27] MEDS: METHYLPREDNISOLONE SOD SUCC 40 MG/ML VIAL IV SCH (10:30)
[2021-03-27] MEDS: ENOXAPARIN 30MG/0.3ML SYR SUBCUT SCH ×2 (10:34→21:18)
[2021-03-27] MEDS: INSULIN GLARGINE UD 100 UNITS/ML SYR SUBCUT SCH (21:33)
[2021-03-28] VITALS (13 sets, daily range): BP systolic 97–169; BP diastolic 24–89
[2021-03-28] MEDS: IPRATROPIUM/ALBUTEROL 0.5-3(2.5)MG/3ML NEB HHN SCH ×6 (00:20→20:01)
[2021-03-28] MEDS: BLOOD SUGAR DIAGNOSTIC STRIP TEST SCH ×4 (05:36→23:10)
[2021-03-28] MEDS: INSULIN LISPRO 100 UNITS/ML SUBCUT SCH ×4 (05:47→23:15)
[2021-03-28 07:01] LABS: BASOPHILS % 0.2 % (0.0-2.0); EOSINOPHILS % 1.5 % (0.0-5.0); HEMATOCRIT. 46.2 % (36.0-48.0); HEMOGLOBIN. 14.7 g/dL (12.0-16.0); LYMPHOCYTES % 22.3 % (20.0-50.0); MEAN CORPUSCULAR HEMOGLOBIN 23.2 pg (28.0-32.0); MEAN PLATELET VOLUME 9.8 fl (7.4-10.4); MONOCYTES % 5.2 % (2.0-8.0); NEUTROPHILS % 70.8 % (40.0-76.0); PLATELET 361 x1000/uL (130-400); RED BLOOD CELL COUNT 6.33 mill/uL (4.2-5.4)
[2021-03-28 07:09] LABS: CHLORIDE 98 mEq/L (98-107)
[2021-03-28 08:41] LABS: BG BASE EXCESS 1.1 mmol/L (-2.0-2.0); BG DEOXYHEMOGLOBIN 4.8 % (0.0-5.0); BG HCO3 ACT 25.5 mmol/L (22.0-26.0); BG METHEMOGLOBIN 0.3 % (0.0-1.5); BG OXYGEN SATURATION 95.1 % (92.0-98.5); BG OXYHEMOGLOBIN 93.9 % (94.0-97.0); BG PCO2 39.8 mmHg (35.0-45.0); BG PH 7.424 (7.350-7.450); BG PO2 74.2 mmHg (75.0-100.0); BG SAMPLE SITE RIGHT RADIAL; BG TOTAL HEMOGLOBIN 16.2 g/dL (12.0-18.0); BG VENT MODE VAPOTHERM
[2021-03-28] MEDS: FUROSEMIDE 40MG/4ML VIAL IVP SCH (10:04)
[2021-03-28] MEDS: FAMOTIDINE 20MG TABLET PO SCH (10:04)
[2021-03-28] MEDS: METHYLPREDNISOLONE SOD SUCC 40 MG/ML VIAL IV SCH (10:04)
[2021-03-28] MEDS: ENOXAPARIN 30MG/0.3ML SYR SUBCUT SCH ×2 (10:04→21:07)
[2021-03-28] MEDS: POTASSIUM CHLORIDE 20MEQ TABLET SR PO SCH (12:59)
[2021-03-28] MEDS: INSULIN GLARGINE UD 100 UNITS/ML SYR SUBCUT SCH (21:13)
[2021-03-29] VITALS (12 sets, daily range): BP systolic 86–155; BP diastolic 29–115
[2021-03-29] MEDS: IPRATROPIUM/ALBUTEROL 0.5-3(2.5)MG/3ML NEB HHN SCH ×6 (00:04→20:23)
[2021-03-29] MEDS: BLOOD SUGAR DIAGNOSTIC STRIP TEST SCH ×3 (05:23→17:32)
[2021-03-29] MEDS: INSULIN LISPRO 100 UNITS/ML SUBCUT SCH ×4 (05:31→23:49)
[2021-03-29 06:29] LABS: BASOPHILS % 0.3 % (0.0-2.0); EOSINOPHILS % 1.1 % (0.0-5.0); HEMATOCRIT. 46.7 % (36.0-48.0); HEMOGLOBIN. 15.1 g/dL (12.0-16.0); MEAN CORPUSCULAR HEMOGLOBIN 23.6 pg (28.0-32.0); MEAN PLATELET VOLUME 9.9 fl (7.4-10.4); MONOCYTES % 4.7 % (2.0-8.0); NEUTROPHILS % 73.9 % (40.0-76.0); PLATELET 363 x1000/uL (130-400); RED CELL DISTRIBUTION WIDTH 18.6 % (11.6-14.6)
[2021-03-29 06:50] LABS: CHLORIDE 98 mEq/L (98-107)
[2021-03-29 07:02] LABS: PHOSPHORUS 2.7 mg/dL (2.5-4.9)
[2021-03-29] MEDS: POTASSIUM CHLORIDE 20MEQ TABLET SR PO SCH (08:55)
[2021-03-29] MEDS: FUROSEMIDE 40MG/4ML VIAL IVP SCH (08:55)
[2021-03-29] MEDS: ENOXAPARIN 30MG/0.3ML SYR SUBCUT SCH ×2 (08:56→21:00)
[2021-03-29] MEDS: FAMOTIDINE 20MG TABLET PO SCH (08:56)
[2021-03-29] MEDS: METHYLPREDNISOLONE SOD SUCC 40 MG/ML VIAL IV SCH (08:56)
[2021-03-29] MEDS ORDERED: POTASSIUM CHLORIDE 20MEQ TABLET SR PO SCH (10:00)
[2021-03-29] MEDS: INSULIN GLARGINE UD 100 UNITS/ML SYR SUBCUT SCH (21:06)
[2021-03-30] VITALS (12 sets, daily range): BP systolic 112–161; BP diastolic 37–86
[2021-03-30] MEDS: IPRATROPIUM/ALBUTEROL 0.5-3(2.5)MG/3ML NEB HHN SCH ×6 (00:16→20:17)
[2021-03-30] MEDS: BLOOD SUGAR DIAGNOSTIC STRIP TEST SCH ×5 (00:54→23:09)
[2021-03-30] MEDS: INSULIN LISPRO 100 UNITS/ML SUBCUT SCH ×4 (05:43→23:23)
[2021-03-30 08:10] LABS: CHLORIDE 100 mEq/L (98-107)
[2021-03-30 08:11] LABS: BASOPHILS % 0.4 % (0.0-2.0); EOSINOPHILS % 1.3 % (0.0-5.0); HEMATOCRIT. 45.8 % (36.0-48.0); HEMOGLOBIN. 14.6 g/dL (12.0-16.0); LYMPHOCYTES % 27.5 % (20.0-50.0); MEAN CORPUSCULAR HEMOGLOBIN 23.3 pg (28.0-32.0); MEAN CORPUSCULAR VOLUME 73.1 fL (81.0-99.0); MEAN PLATELET VOLUME 9.8 fl (7.4-10.4); MONOCYTES % 3.9 % (2.0-8.0); NEUTROPHILS % 66.9 % (40.0-76.0); PLATELET 329 x1000/uL (130-400); RED BLOOD CELL COUNT 6.26 mill/uL (4.2-5.4); RED CELL DISTRIBUTION WIDTH 18.8 % (11.6-14.6)
[2021-03-30] MEDS: FAMOTIDINE 20MG TABLET PO SCH (09:04)
[2021-03-30] MEDS: METHYLPREDNISOLONE SOD SUCC 40 MG/ML VIAL IV SCH (09:04)
[2021-03-30] MEDS: POTASSIUM CHLORIDE 20MEQ TABLET SR PO SCH (09:04)
[2021-03-30] MEDS: FUROSEMIDE 40MG/4ML VIAL IVP SCH (09:04)
[2021-03-30] MEDS: ENOXAPARIN 30MG/0.3ML SYR SUBCUT SCH ×2 (09:21→20:11)
[2021-03-30 17:27] LABS: BG BASE EXCESS 0.9 mmol/L (-2.0-2.0); BG CARBOXYHEMOGLOBIN 0.5 % (0.5-1.5); BG DEOXYHEMOGLOBIN 12.6 % (0.0-5.0); BG HCO3 ACT 25.4 mmol/L (22.0-26.0); BG METHEMOGLOBIN 0.3 % (0.0-1.5); BG OXYGEN SATURATION 87.3 % (92.0-98.5); BG OXYHEMOGLOBIN 86.6 % (94.0-97.0); BG PCO2 40.6 mmHg (35.0-45.0); BG PH 7.415 (7.350-7.450); BG PO2 53.4 mmHg (75.0-100.0); BG SAMPLE SITE RIGHT RADIAL; BG TOTAL HEMOGLOBIN 15.5 g/dL (12.0-18.0); BG VENT MODE ROOM AIR
[2021-03-30] MEDS: INSULIN GLARGINE UD 100 UNITS/ML SYR SUBCUT SCH (22:20)
[2021-03-31] VITALS (12 sets, daily range): BP systolic 90–138; BP diastolic 46–81
[2021-03-31] MEDS: IPRATROPIUM/ALBUTEROL 0.5-3(2.5)MG/3ML NEB HHN SCH ×5 (00:02→20:22)
[2021-03-31] MEDS: BLOOD SUGAR DIAGNOSTIC STRIP TEST SCH ×4 (05:12→23:43)
[2021-03-31] MEDS: INSULIN LISPRO 100 UNITS/ML SUBCUT SCH ×4 (05:19→23:54)
[2021-03-31] MEDS: METHYLPREDNISOLONE SOD SUCC 40 MG/ML VIAL IV SCH (09:22)
[2021-03-31] MEDS: POTASSIUM CHLORIDE 20MEQ TABLET SR PO SCH (09:22)
[2021-03-31] MEDS: FUROSEMIDE 40MG/4ML VIAL IVP SCH (09:22)
[2021-03-31] MEDS: FAMOTIDINE 20MG TABLET PO SCH (09:22)
[2021-03-31] MEDS: ENOXAPARIN 30MG/0.3ML SYR SUBCUT SCH ×2 (09:23→20:08)
[2021-03-31 12:22] LABS: CHLORIDE 98 mEq/L (98-107)
[2021-03-31] MEDS: INSULIN GLARGINE UD 100 UNITS/ML SYR SUBCUT SCH (22:01)
[2021-04-01] VITALS (12 sets, daily range): BP systolic 104–144; BP diastolic 55–84
[2021-04-01] MEDS: IPRATROPIUM/ALBUTEROL 0.5-3(2.5)MG/3ML NEB HHN SCH ×6 (00:19→20:36)
[2021-04-01] MEDS: INSULIN LISPRO 100 UNITS/ML SUBCUT SCH ×3 (06:00→18:06)
[2021-04-01] MEDS: BLOOD SUGAR DIAGNOSTIC STRIP TEST SCH ×3 (06:00→17:59)
[2021-04-01 06:36] LABS: BASOPHILS % 0.4 % (0.0-2.0); EOSINOPHILS % 1.4 % (0.0-5.0); HEMATOCRIT. 45.8 % (36.0-48.0); HEMOGLOBIN. 14.6 g/dL (12.0-16.0); LYMPHOCYTES % 20.8 % (20.0-50.0); MEAN CORPUSCULAR HEMOGLOBIN 23.5 pg (28.0-32.0); MEAN CORPUSCULAR VOLUME 73.8 fL (81.0-99.0); MEAN PLATELET VOLUME 10.1 fl (7.4-10.4); NEUTROPHILS % 72.4 % (40.0-76.0); PLATELET 284 x1000/uL (130-400); RED BLOOD CELL COUNT 6.21 mill/uL (4.2-5.4); RED CELL DISTRIBUTION WIDTH 19.1 % (11.6-14.6)
[2021-04-01 07:53] LABS: CHLORIDE 102 mEq/L (98-107)
[2021-04-01] MEDS: FUROSEMIDE 40MG/4ML VIAL IVP SCH (08:38)
[2021-04-01] MEDS: FAMOTIDINE 20MG TABLET PO SCH (08:38)
[2021-04-01] MEDS: ENOXAPARIN 30MG/0.3ML SYR SUBCUT SCH ×2 (08:38→21:10)
[2021-04-01] MEDS: POTASSIUM CHLORIDE 20MEQ TABLET SR PO SCH (11:00)
[2021-04-01] MEDS: PREDNISONE 20MG TABLET PO SCH (21:10)
[2021-04-01] MEDS: INSULIN GLARGINE UD 100 UNITS/ML SYR SUBCUT SCH (21:13)
[2021-04-02] VITALS (10 sets, daily range): BP systolic 85–142; BP diastolic 32–89
[2021-04-02] MEDS: INSULIN LISPRO 100 UNITS/ML SUBCUT SCH ×4 (00:04→18:09)
[2021-04-02] MEDS: BLOOD SUGAR DIAGNOSTIC STRIP TEST SCH ×4 (00:24→18:05)
[2021-04-02] MEDS: IPRATROPIUM/ALBUTEROL 0.5-3(2.5)MG/3ML NEB HHN SCH ×4 (00:25→18:31)
[2021-04-02] MEDS: ENOXAPARIN 30MG/0.3ML SYR SUBCUT SCH (08:28)
[2021-04-02] MEDS: POTASSIUM CHLORIDE 20MEQ TABLET SR PO SCH (08:28)
[2021-04-02] MEDS: FUROSEMIDE 40MG/4ML VIAL IVP SCH (08:28)
[2021-04-02] MEDS: FAMOTIDINE 20MG TABLET PO SCH (08:30)
[2021-04-02] MEDS: PREDNISONE 20MG TABLET PO SCH (08:34)
[2021-04-02] MEDS ORDERED: LANTUSUD SUBCUT (13:58)
[2021-04-02] MEDS ORDERED: FURO-151 MT (13:58)
[2021-04-02] MEDS ORDERED: P20 PO (13:58)
== END 2021-04-02 20:34 | disposition home or self-care (01) | DRG 871 ==
LOC: ER 09:37 → MICUSO 10:34 → ENRESERV 11:32 → CANRESERV 11:32 → ENRESERV 11:50 → MICUSO 20:33 → MICUNO 03-09 22:00 → 5EST 03-11 10:35
PROVIDERS: ADMIT Internal Medicine; ATTEND Internal Medicine
PROC: 02HV33Z Insertion of Infusion Device into Superior Vena Cava, Percutaneous Approach (ICD-10-PCS; principal; 2021-03-08)
PROC: B548ZZA Ultrasonography of Superior Vena Cava, Guidance (ICD-10-PCS; 2021-03-08)
PROC: 5A09557 Assistance with Respiratory Ventilation, Greater than 96 Consecutive Hours, Continuous Positive Airway Pressure (ICD-10-PCS; 2021-03-08)
PROC: 5A1D70Z Performance of Urinary Filtration, Intermittent, Less than 6 Hours Per Day (ICD-10-PCS; 2021-03-08)
PROC: 5A0955A Assistance with Respiratory Ventilation, Greater than 96 Consecutive Hours, High Flow/Velocity Cannula (ICD-10-PCS; 2021-03-15)
DX: A41.9 Sepsis, unspecified organism (principal); J18.9 Pneumonia, unspecified organism; J96.01 Acute respiratory failure with hypoxia; N17.0 Acute kidney failure with tubular necrosis; J96.02 Acute respiratory failure with hypercapnia; E87.2 Acidosis; I50.30 Unspecified diastolic (congestive) heart failure; E11.9 Type 2 diabetes mellitus without complications; E87.5 Hyperkalemia; E78.5 Hyperlipidemia, unspecified; E78.00 Pure hypercholesterolemia, unspecified; I11.0 Hypertensive heart disease with heart failure; Z20.822 Contact with and (suspected) exposure to COVID-19; F14.10 Cocaine abuse, uncomplicated; E66.01 Morbid (severe) obesity due to excess calories; F17.200 Nicotine dependence, unspecified, uncomplicated; Z68.36 Body mass index [BMI] 36.0-36.9, adult; Z82.49 Family history of ischemic heart disease and other diseases of the circulatory system; Z79.899 Other long term (current) drug therapy
CPT/HCPCS: 36415; 36556; 36600; 71045; 71250; 76770; 76937; 78580; 80048; 80053; 80202; 82140; 82375; 82550; 82553; 82728; 82805; 82962; 83036; 83605; 83615; 83735; 83880; 83970; 84100; 84132; 84145; 84484; 85025; 85379; 85384; 86140; 86705; 86709; 86803; 87340; 87426; 93005; 93306; 94003; 94640; 94660; 97162; 99291; C1752; C9113; J0456; J0696; J1100; J1650; J1815; J1940; J2543; J2920; J3370; J3475; J3490; J7030; J7040; J7042; J7060; J7512; U0003; U0005; A4315

== ENCOUNTER 2021-05-04 03:02 | Inpatient (IN) | payer MEDICARE, OTHER ==
[~2021-05-04] VITALS: Ht 157.5 cm; Wt 101.9 kg
[~2021-05-04 03:02] MED LIST: ASPI-1406 PO; ATOR20TA65 PO; ESCI20TA37 PO; FURO-151 MT; HYDR50CA5 PO; LANTUSUD SUBCUT; LORA10TA7 PO; METF-416 MT; MIRT-90 PO; P20 MT; RISP05 MT; RISP1 PO; RISP4TAB31 PO; SERT-112 PO; SIMV-46 PO; TRIC160 MT
[2021-05-04] MEDS ORDERED: ACETAMINOPHEN 325MG TABLET PO ONE (03:30)
[2021-05-04 03:55] LABS: CHLORIDE 85 mEq/L (98-107)
[2021-05-04 03:57] LABS: PROTHROMBIN TIME 10.9 sec (9.6-11.0)
[2021-05-04 04:06] LABS: BASOPHILS % 0.4 % (0.0-2.0); EOSINOPHILS % 0.1 % (0.0-5.0); HEMATOCRIT. 38.5 % (36.0-48.0); HEMOGLOBIN. 12.1 g/dL (12.0-16.0); LYMPHOCYTES % 7.1 % (20.0-50.0); MEAN CORPUSCULAR HEMOGLOBIN 24.3 pg (28.0-32.0); MEAN CORPUSCULAR VOLUME 77.5 fL (81.0-99.0); MEAN PLATELET VOLUME 9.4 fl (7.4-10.4); MONOCYTES % 4.2 % (2.0-8.0); NEUTROPHILS % 88.2 % (40.0-76.0); PLATELET 443 x1000/uL (130-400); RED BLOOD CELL COUNT 4.96 mill/uL (4.2-5.4); RED CELL DISTRIBUTION WIDTH 21.9 % (11.6-14.6)
[2021-05-04] MEDS ORDERED: IPRATROPIUM BROMIDE (0.02%) 0.5MG/2.5ML NEB HHN SCH (05:30)
[2021-05-04] MEDS ORDERED: SODIUM CHLORIDE 0.9% 1,000 ML IV ONE ×2 (05:30→09:30)
[2021-05-04] MEDS ORDERED: ALBUTEROL (0.083%) 2.5MG/3ML NEB HHN SCH (05:30)
[2021-05-04] MEDS ORDERED: PIPERACILLIN/TAZ 3.375G PREMIX 50 ML IV SCH (05:30)
[2021-05-04] MEDS ORDERED: DEXAMETHASONE 10 MG/ML VIAL IV SCH (05:30)
[2021-05-04] MEDS ORDERED: VANCOMYCIN 1 G PREMIX 200 ML IV SCH (05:30)
[2021-05-04 06:22] LABS: BG BASE EXCESS -2.9 mmol/L (-2.0-2.0); BG CARBOXYHEMOGLOBIN 0.3 % (0.5-1.5); BG DEOXYHEMOGLOBIN 7.2 % (0.0-5.0); BG FRACTION INSPIRED OXYGEN 90; BG HCO3 ACT 24.8 mmol/L (22.0-26.0); BG METHEMOGLOBIN 0.3 % (0.0-1.5); BG OXYGEN SATURATION 92.8 % (92.0-98.5); BG OXYHEMOGLOBIN 92.2 % (94.0-97.0); BG PCO2 56.1 mmHg (35.0-45.0); BG PH 7.263 (7.350-7.450); BG PO2 76.7 mmHg (75.0-100.0); BG SAMPLE SITE RIGHT RADIAL; BG TOTAL HEMOGLOBIN 12.3 g/dL (12.0-18.0); BG VENT MODE COOL AEROSOL
[2021-05-04] MEDS ORDERED: SODIUM BICARBONATE 8.4% 1 MEQ/ML 50ML SYR IV NR ×3 (06:30→17:00)
[2021-05-04] MEDS ORDERED: NOREPINEPHRINE 8MG/250ML PMX 250 ML IV ONE ×3 (06:30→11:47)
[2021-05-04 07:19] LABS: PROTHROMBIN TIME 11.2 sec (9.6-11.0)
[2021-05-04] MEDS ORDERED: AZITHROMYCIN 500 MG in DEXT 5% WATER 250 ML IV SCH (08:45)
[2021-05-04] MEDS: FAMOTIDINE 20MG/2ML VIAL IV SCH (11:45)
[2021-05-04] MEDS ORDERED: NOREPINEPHRINE 32 MG in DEXT 5% WATER 218 ML IV PRN ×2 (11:45→14:00)
[2021-05-04] MEDS ORDERED: LORAZEPAM 0.5MG TABLET PO PRN (11:45)
[2021-05-04] MEDS ORDERED: ONDANSETRON HCL 4MG/2ML INJ IV PRN (11:45)
[2021-05-04] MEDS ORDERED: DIPHENHYDRAMINE 50MG/ML VIAL IV PRN (11:45)
[2021-05-04] MEDS ORDERED: NA PHOS,M-B/NA PHOS,DI-BA ENEMA 118ML PR PRN (11:45)
[2021-05-04] MEDS ORDERED: ACETAMINOPHEN 325MG TABLET PO PRN (11:45)
[2021-05-04] MEDS ORDERED: MAGNESIUM/ALUMINUM HYDROXIDE/SIMETHICONE 30ML UDC PO PRN (11:45)
[2021-05-04] MEDS ORDERED: GUAIFENESIN 200MG/10ML SUGAR FREE UDC PO PRN (11:45)
[2021-05-04] MEDS ORDERED: ACETAMINOPHEN 650MG SUPP PR PRN (11:45)
[2021-05-04] MEDS ORDERED: HYDROCODONE/ACETAMINOPHEN 5/325MG TABLET PO PRN (11:45)
[2021-05-04] MEDS ORDERED: DOCUSATE SODIUM 100MG CAPSULE PO PRN (11:45)
[2021-05-04] MEDS ORDERED: IPRATROPIUM/ALBUTEROL 0.5-3(2.5)MG/3ML NEB NEB PRN (11:45)
[2021-05-04] MEDS ORDERED: MORPHINE SULFATE 2 MG/ML CPJ (NOT FOR IM USE) IV PRN (11:45)
[2021-05-04] MEDS ORDERED: CLONIDINE 0.1MG TABLET PO PRN (11:45)
[2021-05-04] MEDS: BUDESONIDE 0.5MG/2ML NEB HHN SCH (12:00)
[2021-05-04] MEDS ORDERED: SODIUM CHLORIDE 0.9% 1,000 ML IV SCH (12:15)
[2021-05-04] MEDS ORDERED: DEXTROSE 50% WATER 50ML SYRINGE IV PRN (12:15)
[2021-05-04 12:40] LABS: BG BASE EXCESS -14.5 mmol/L (-2.0-2.0); BG CARBOXYHEMOGLOBIN 0.5 % (0.5-1.5); BG DEOXYHEMOGLOBIN 8.9 % (0.0-5.0); BG FRACTION INSPIRED OXYGEN 36; BG HCO3 ACT 15.6 mmol/L (22.0-26.0); BG METHEMOGLOBIN 0.3 % (0.0-1.5); BG OXYHEMOGLOBIN 90.3 % (94.0-97.0); BG PCO2 54.2 mmHg (35.0-45.0); BG PH 7.076 (7.350-7.450); BG PO2 77.2 mmHg (75.0-100.0); BG TOTAL HEMOGLOBIN 12.7 g/dL (12.0-18.0)
[2021-05-04] MEDS: BLOOD SUGAR DIAGNOSTIC STRIP TEST SCH ×3 (13:00→21:00)
[2021-05-04] MEDS: INSULIN LISPRO 100 UNITS/ML SUBCUT SCH ×3 (13:20→23:08)
[2021-05-04] MEDS ORDERED: SODIUM BICARBONATE IV SCH (13:24)
[2021-05-04] MEDS ORDERED: SODIUM CHLORIDE 0.9% IV SCH (13:24)
[2021-05-04] MEDS ORDERED: SODIUM CHLORIDE 0.9% 500 ML IV ONE (13:30)
[2021-05-04] MEDS ORDERED: PHENYLEPHRINE 100 MG in DEXT 5% WATER 240 ML IV PRN (13:30)
[2021-05-04] MEDS: METHYLPREDNISOLONE SOD SUCC 40 MG/ML VIAL IV SCH (13:49)
[2021-05-04] MEDS ORDERED: VANCOMYCIN 500 MG PREMIX 100 ML IV NR (14:00)
[2021-05-04] MEDS: SODIUM BICARBONATE 50 MEQ in SODIUM CHLORIDE 0.9% 1,000 ML IV SCH (14:00)
[2021-05-04 14:26] LABS: BG BASE EXCESS -6.7 mmol/L (-2.0-2.0); BG CARBOXYHEMOGLOBIN 0.5 % (0.5-1.5); BG DEOXYHEMOGLOBIN 13.6 % (0.0-5.0); BG FRACTION INSPIRED OXYGEN 44; BG HCO3 ACT 21.6 mmol/L (22.0-26.0); BG METHEMOGLOBIN 0.2 % (0.0-1.5); BG OXYGEN SATURATION 86.3 % (92.0-98.5); BG OXYHEMOGLOBIN 85.7 % (94.0-97.0); BG PCO2 56.2 mmHg (35.0-45.0); BG PH 7.203 (7.350-7.450); BG SAMPLE SITE RIGHT RADIAL; BG TOTAL HEMOGLOBIN 11.7 g/dL (12.0-18.0); BG VENT MODE NASAL CANNULA
[2021-05-04 17:08] LABS: CREATINE KINASE MB FRACTION 4.6 ng/mL (0.5-3.6)
[2021-05-04 18:04] LABS: BG BASE EXCESS -2.4 mmol/L (-2.0-2.0); BG CARBOXYHEMOGLOBIN 0.4 % (0.5-1.5); BG DEOXYHEMOGLOBIN 2.5 % (0.0-5.0); BG FRACTION INSPIRED OXYGEN 80; BG HCO3 ACT 25.9 mmol/L (22.0-26.0); BG METHEMOGLOBIN 0.4 % (0.0-1.5); BG OXYGEN SATURATION 97.5 % (92.0-98.5); BG OXYHEMOGLOBIN 96.7 % (94.0-97.0); BG PCO2 60.5 mmHg (35.0-45.0); BG PH 7.249 (7.350-7.450); BG PO2 103.5 mmHg (75.0-100.0); BG TOTAL HEMOGLOBIN 13.3 g/dL (12.0-18.0); BG VENT MODE MASK - BIPAP
[2021-05-04 21:19] LABS: *AMPHETAMINES SCREEN URINE NEGATIVE (NEGATIVE); *BARBITURATES SCREEN URINE NEGATIVE (NEGATIVE); *BENZODIAZEPINES SCREEN URINE NEGATIVE (NEGATIVE); *COCAINE SCREEN URINE NEGATIVE (NEGATIVE); CANNABINOID URINE SCREEN NEGATIVE (NEGATIVE); METHADONE URINE SCREEN NEGATIVE (NEGATIVE); PHENCYCLIDINE URINE SCREEN NEGATIVE (NEGATIVE)
[2021-05-04 21:20] LABS: OPIATES URINE SCREEN NEGATIVE (NEGATIVE)
[2021-05-04] MEDS: PIPERACILLIN/TAZOBACTAM 3.375 G in DEXTROSE 5% WATER 50 ML IV SCH (23:30)
[2021-05-04 23:46] LABS: CREATINE KINASE MB FRACTION 3.3 ng/mL (0.5-3.6)
[2021-05-05] MEDS: SODIUM BICARBONATE 50 MEQ in SODIUM CHLORIDE 0.9% 1,000 ML IV SCH (00:30)
[2021-05-05] MEDS: METHYLPREDNISOLONE SOD SUCC 40 MG/ML VIAL IV SCH ×2 (04:16→17:06)
[2021-05-05] MEDS: BLOOD SUGAR DIAGNOSTIC STRIP TEST SCH ×3 (08:00→21:23)
[2021-05-05] MEDS: PIPERACILLIN/TAZOBACTAM 3.375 G in DEXTROSE 5% WATER 50 ML IV SCH ×2 (09:00→21:40)
[2021-05-05 09:33] LABS: CHLORIDE 96 mEq/L (98-107)
[2021-05-05 09:42] LABS: LDL CHOLESTEROL 116 mg/dL (5-100)
[2021-05-05 09:43] LABS: HDL CHOLESTEROL 40 mg/dL (40-59); T4 FREE 1.37 ng/dL (0.76-1.46)
[2021-05-05] MEDS: INSULIN LISPRO 100 UNITS/ML SUBCUT SCH ×3 (10:11→21:31)
[2021-05-05] MEDS: FAMOTIDINE 20MG/2ML VIAL IV SCH (10:25)
[2021-05-05 11:58] LABS: BG BASE EXCESS 8.5 mmol/L (-2.0-2.0); BG CARBOXYHEMOGLOBIN 0.6 % (0.5-1.5); BG FRACTION INSPIRED OXYGEN 100; BG HCO3 ACT 33.6 mmol/L (22.0-26.0); BG METHEMOGLOBIN 0.3 % (0.0-1.5); BG OXYGEN SATURATION 92.9 % (92.0-98.5); BG OXYHEMOGLOBIN 92.1 % (94.0-97.0); BG PCO2 47.5 mmHg (35.0-45.0); BG PH 7.467 (7.350-7.450); BG PO2 63.9 mmHg (75.0-100.0); BG SAMPLE SITE LEFT RADIAL; BG TOTAL HEMOGLOBIN 14.2 g/dL (12.0-18.0); BG VENT MODE MASK - NRB
[2021-05-05] MEDS: BUDESONIDE 0.5MG/2ML NEB HHN SCH (12:00)
[2021-05-05] MEDS: IPRATROPIUM/ALBUTEROL 0.5-3(2.5)MG/3ML NEB NEB SCH (12:00)
[2021-05-05] MEDS ORDERED: VANCOMYCIN 1 G PREMIX 200 ML IV NR (13:00)
[2021-05-05] MEDS: SODIUM CHLORIDE 0.9% 1,000 ML IV SCH ×2 (13:23→23:48)
[2021-05-05 18:34] LABS: BASOPHILS % 0.6 % (0.0-2.0); EOSINOPHILS % 0.6 % (0.0-5.0); HEMATOCRIT. 28.6 % (36.0-48.0); HEMOGLOBIN. 8.6 g/dL (12.0-16.0); LYMPHOCYTES % 9.8 % (20.0-50.0); MEAN CORPUSCULAR HEMOGLOBIN 25.5 pg (28.0-32.0); MEAN CORPUSCULAR VOLUME 85.5 fL (81.0-99.0); RED BLOOD CELL COUNT 3.35 mill/uL (4.2-5.4); RED CELL DISTRIBUTION WIDTH 23.6 % (11.6-14.6)
[2021-05-05 18:52] LABS: CREATINE KINASE MB FRACTION 1.5 ng/mL (0.5-3.6)
[2021-05-05 19:43] LABS: PLATELET 293 x1000/uL (130-400)
[2021-05-05 19:44] LABS: MEAN PLATELET VOLUME 9.1 fl (7.4-10.4)
[2021-05-06] VITALS (44 sets, daily range): BP systolic 74–139; BP diastolic 41–113
[2021-05-06] MEDS: IPRATROPIUM/ALBUTEROL 0.5-3(2.5)MG/3ML NEB NEB SCH ×2 (01:38→20:04)
[2021-05-06] MEDS: METHYLPREDNISOLONE SOD SUCC 40 MG/ML VIAL IV SCH ×2 (01:39→13:15)
[2021-05-06 01:56] LABS: CLARITY URINE CLEAR (CLEAR); COLOR URINE YELLOW (YELLOW); KETONES URINE NEGATIVE (NEGATIVE); LEUKOCYTE ESTERASE URINE NEGATIVE (NEGATIVE); NITRITE URINE NEGATIVE (NEGATIVE); OCCULT BLOOD URINE 2+ (NEGATIVE); PROTEIN URINE 1+ (NEGATIVE); SPECIFIC GRAVITY URINE 1.018 (1.005-1.030); UROBILINOGEN URINE 0.2 E.U./dL (0.2-1.0)
[2021-05-06] MEDS: INSULIN LISPRO 100 UNITS/ML SUBCUT SCH ×4 (09:13→20:17)
[2021-05-06 09:17] LABS: HEMATOCRIT. 36.1 % (36.0-48.0); HEMOGLOBIN. 11.4 g/dL (12.0-16.0); MEAN CORPUSCULAR HEMOGLOBIN 24.5 pg (28.0-32.0); MEAN CORPUSCULAR VOLUME 77.8 fL (81.0-99.0); PLATELET 399 x1000/uL (130-400); RED BLOOD CELL COUNT 4.64 mill/uL (4.2-5.4); RED CELL DISTRIBUTION WIDTH 21.8 % (11.6-14.6)
[2021-05-06] MEDS: SODIUM CHLORIDE 0.9% 1,000 ML IV SCH ×2 (09:23→18:14)
[2021-05-06 10:00] LABS: BG BASE EXCESS 3.2 mmol/L (-2.0-2.0); BG CARBOXYHEMOGLOBIN 0.2 % (0.5-1.5); BG DEOXYHEMOGLOBIN 0.5 % (0.0-5.0); BG FRACTION INSPIRED OXYGEN 100; BG HCO3 ACT 27.4 mmol/L (22.0-26.0); BG METHEMOGLOBIN 0.3 % (0.0-1.5); BG OXYGEN SATURATION 99.5 % (92.0-98.5); BG PCO2 40.3 mmHg (35.0-45.0); BG PO2 327.3 mmHg (75.0-100.0); BG SAMPLE SITE RIGHT RADIAL; BG TOTAL HEMOGLOBIN 12.7 g/dL (12.0-18.0); BG VENT MODE MASK - NRB
[2021-05-06 10:28] LABS: PLATELET ESTIMATE NORMAL
[2021-05-06] MEDS: PHENYLEPHRINE 100 MG in DEXT 5% WATER 240 ML IV PRN (10:30)
[2021-05-06] MEDS: FAMOTIDINE 20MG/2ML VIAL IV SCH (11:27)
[2021-05-06] MEDS: BLOOD SUGAR DIAGNOSTIC STRIP TEST SCH ×4 (12:50→20:18)
[2021-05-06] MEDS ORDERED: VANCOMYCIN 1250MG in DEXTROSE 5% WATER 250ML IV NR (14:00)
[2021-05-06] MEDS: PIPERACILLIN/TAZOBACTAM 3.375 G in DEXTROSE 5% WATER 50 ML IV SCH ×2 (14:56→22:33)
[2021-05-06] MEDS ORDERED: SERTRALINE HCL 100MG TABLET PO SCH (15:30)
[2021-05-06] MEDS ORDERED: LINEZOLID 600MG TABLET PO SCH (21:00)
[2021-05-06] MEDS ORDERED: LINEZOLID 600 MG PREMIX 300 ML IV SCH (22:30)
[2021-05-07] VITALS (96 sets, daily range): BP systolic 68–135; BP diastolic 19–103
[2021-05-07] MEDS: BUDESONIDE 0.5MG/2ML NEB HHN SCH ×3 (01:14→20:34)
[2021-05-07] MEDS: IPRATROPIUM/ALBUTEROL 0.5-3(2.5)MG/3ML NEB NEB SCH ×5 (01:16→20:34)
[2021-05-07] MEDS: METHYLPREDNISOLONE SOD SUCC 40 MG/ML VIAL IV SCH (01:45)
[2021-05-07] MEDS: SODIUM CHLORIDE 0.9% 1,000 ML IV SCH ×2 (05:15→15:32)
[2021-05-07] MEDS: PIPERACILLIN/TAZOBACTAM 3.375 G in DEXTROSE 5% WATER 50 ML IV SCH ×3 (05:15→21:28)
[2021-05-07 05:54] LABS: HEMATOCRIT. 35.9 % (36.0-48.0); HEMOGLOBIN. 11.4 g/dL (12.0-16.0); MEAN CORPUSCULAR HEMOGLOBIN 24.6 pg (28.0-32.0); MEAN CORPUSCULAR VOLUME 77.4 fL (81.0-99.0); MEAN PLATELET VOLUME 9.1 fl (7.4-10.4); PLATELET 417 x1000/uL (130-400); RED BLOOD CELL COUNT 4.64 mill/uL (4.2-5.4); RED CELL DISTRIBUTION WIDTH 21.6 % (11.6-14.6)
[2021-05-07] MEDS: FAMOTIDINE 20MG/2ML VIAL IV SCH (08:35)
[2021-05-07] MEDS: RISPERIDONE 1MG TABLET PO SCH (08:36)
[2021-05-07] MEDS: LINEZOLID 600 MG PREMIX 300 ML IV SCH ×2 (08:36→22:18)
[2021-05-07] MEDS: BLOOD SUGAR DIAGNOSTIC STRIP TEST SCH ×4 (08:37→21:16)
[2021-05-07] MEDS: NICOTINE 7MG PATCH TD SCH (08:37)
[2021-05-07] MEDS: INSULIN LISPRO 100 UNITS/ML SUBCUT SCH ×4 (08:38→21:18)
[2021-05-07 09:16] LABS: PLATELET ESTIMATE SLIGHTLY INCREASED
[2021-05-07] MEDS ORDERED: NALOXONE HCL 0.4MG/ML VIAL IV PRN (10:15)
[2021-05-07] MEDS ORDERED: PHENYLEPHRINE 100 MG in DEXT 5% WATER 240 ML IV PRN (11:30)
[2021-05-07] MEDS: PHENYLEPHRINE 100 MG in DEXT 5% WATER 240 ML IV PRN (12:14)
[2021-05-07] MEDS: MIDODRINE HCL 5MG TABLET PO SCH ×2 (12:14→16:51)
[2021-05-07] MEDS ORDERED: INSULIN GLARGINE UD 100 UNITS/ML SYR SUBCUT NR (13:00)
[2021-05-07] MEDS ORDERED: LIDOCAINE HCL 1% 20ML VIAL (Pyxis) INJ ONE (13:56)
[2021-05-07] MEDS: ASPIRIN 81MG TABLET PO SCH (16:51)
[2021-05-07] MEDS: ATORVASTATIN CALCIUM 20MG TABLET PO SCH (21:15)
[2021-05-07] MEDS: INSULIN GLARGINE UD 100 UNITS/ML SYR SUBCUT SCH (21:30)
[2021-05-07] MEDS ORDERED: INSULIN GLARGINE UD 100 UNITS/ML SYR SUBCUT SCH (22:00)
[2021-05-08] VITALS (42 sets, daily range): BP systolic 88–141; BP diastolic 48–78
[2021-05-08] MEDS: SODIUM CHLORIDE 0.9% 1,000 ML IV SCH ×3 (01:36→21:39)
[2021-05-08] MEDS: PIPERACILLIN/TAZOBACTAM 3.375 G in DEXTROSE 5% WATER 50 ML IV SCH ×3 (05:18→21:39)
[2021-05-08 05:48] LABS: BASOPHILS % 0.5 % (0.0-2.0); EOSINOPHILS % 1.4 % (0.0-5.0); HEMATOCRIT. 37.1 % (36.0-48.0); LYMPHOCYTES % 22.2 % (20.0-50.0); MEAN CORPUSCULAR HEMOGLOBIN 24.9 pg (28.0-32.0); MEAN CORPUSCULAR VOLUME 76.9 fL (81.0-99.0); MEAN PLATELET VOLUME 9.2 fl (7.4-10.4); MONOCYTES % 4.9 % (2.0-8.0); PLATELET 412 x1000/uL (130-400); RED BLOOD CELL COUNT 4.83 mill/uL (4.2-5.4); RED CELL DISTRIBUTION WIDTH 21.2 % (11.6-14.6)
[2021-05-08] MEDS: BLOOD SUGAR DIAGNOSTIC STRIP TEST SCH ×4 (07:30→20:54)
[2021-05-08] MEDS: BUDESONIDE 0.5MG/2ML NEB HHN SCH ×2 (08:05→19:58)
[2021-05-08] MEDS: IPRATROPIUM/ALBUTEROL 0.5-3(2.5)MG/3ML NEB NEB SCH ×3 (08:05→20:01)
[2021-05-08] MEDS ORDERED: METHYLPREDNISOLONE SOD SUCC 40 MG/ML VIAL IV SCH (09:00)
[2021-05-08] MEDS: RISPERIDONE 1MG TABLET PO SCH (09:12)
[2021-05-08] MEDS: LINEZOLID 600 MG PREMIX 300 ML IV SCH ×2 (09:13→20:53)
[2021-05-08] MEDS: ASPIRIN 81MG TABLET PO SCH (09:13)
[2021-05-08] MEDS: MIDODRINE HCL 5MG TABLET PO SCH ×3 (09:13→16:58)
[2021-05-08] MEDS: INSULIN LISPRO 100 UNITS/ML SUBCUT SCH ×4 (09:14→20:53)
[2021-05-08] MEDS: FAMOTIDINE 20MG/2ML VIAL IV SCH (09:15)
[2021-05-08] MEDS: INSULIN GLARGINE UD 100 UNITS/ML SYR SUBCUT SCH ×2 (09:15→21:40)
[2021-05-08] MEDS: NICOTINE 7MG PATCH TD SCH (09:48)
[2021-05-08] MEDS ORDERED: INSULIN GLARGINE UD 100 UNITS/ML SYR SUBCUT SCH (13:00)
[2021-05-08] MEDS: ATORVASTATIN CALCIUM 20MG TABLET PO SCH (20:52)
[2021-05-09] VITALS (11 sets, daily range): BP systolic 84–107; BP diastolic 44–57
[2021-05-09] MEDS: IPRATROPIUM/ALBUTEROL 0.5-3(2.5)MG/3ML NEB NEB SCH ×4 (00:12→20:37)
[2021-05-09] MEDS ORDERED: MIDODRINE HCL 5MG TABLET PO NR (01:00)
[2021-05-09] MEDS ORDERED: SODIUM CHLORIDE 0.9% 1000ML BAG (SEPSIS BOLUS) IV NR (01:00)
[2021-05-09] MEDS: PIPERACILLIN/TAZOBACTAM 3.375 G in DEXTROSE 5% WATER 50 ML IV SCH ×3 (06:23→22:12)
[2021-05-09] MEDS: SODIUM CHLORIDE 0.9% 1,000 ML IV SCH ×2 (06:23→18:26)
[2021-05-09] MEDS: BLOOD SUGAR DIAGNOSTIC STRIP TEST SCH ×4 (06:48→20:50)
[2021-05-09] MEDS: INSULIN LISPRO 100 UNITS/ML SUBCUT SCH ×4 (06:49→21:01)
[2021-05-09 07:46] LABS: BASOPHILS % 0.4 % (0.0-2.0); EOSINOPHILS % 1.9 % (0.0-5.0); HEMATOCRIT. 35.6 % (36.0-48.0); HEMOGLOBIN. 11.2 g/dL (12.0-16.0); LYMPHOCYTES % 18.5 % (20.0-50.0); MEAN CORPUSCULAR HEMOGLOBIN 24.4 pg (28.0-32.0); MEAN CORPUSCULAR VOLUME 77.3 fL (81.0-99.0); MEAN PLATELET VOLUME 8.6 fl (7.4-10.4); MONOCYTES % 5.2 % (2.0-8.0); PLATELET 344 x1000/uL (130-400); RED BLOOD CELL COUNT 4.61 mill/uL (4.2-5.4); RED CELL DISTRIBUTION WIDTH 20.4 % (11.6-14.6)
[2021-05-09] MEDS: NICOTINE 7MG PATCH TD SCH (09:17)
[2021-05-09] MEDS: LINEZOLID 600 MG PREMIX 300 ML IV SCH ×2 (09:17→20:55)
[2021-05-09] MEDS: FAMOTIDINE 20MG/2ML VIAL IV SCH (09:17)
[2021-05-09] MEDS: ASPIRIN 81MG TABLET PO SCH (09:18)
[2021-05-09] MEDS: RISPERIDONE 1MG TABLET PO SCH (09:18)
[2021-05-09] MEDS: MIDODRINE HCL 5MG TABLET PO SCH ×3 (09:19→18:03)
[2021-05-09] MEDS: INSULIN GLARGINE UD 100 UNITS/ML SYR SUBCUT SCH ×2 (10:37→21:00)
[2021-05-09] MEDS: BUDESONIDE 0.5MG/2ML NEB HHN SCH ×2 (12:21→20:37)
[2021-05-09] MEDS: ATORVASTATIN CALCIUM 20MG TABLET PO SCH (20:55)
[2021-05-10] MEDS: IPRATROPIUM/ALBUTEROL 0.5-3(2.5)MG/3ML NEB NEB SCH ×4 (02:12→20:51)
[2021-05-10] MEDS: SODIUM CHLORIDE 0.9% 1,000 ML IV SCH ×3 (02:28→22:35)
[2021-05-10 04:00] VITALS: BP 103/59
[2021-05-10] MEDS: PIPERACILLIN/TAZOBACTAM 3.375 G in DEXTROSE 5% WATER 50 ML IV SCH ×3 (05:52→22:32)
[2021-05-10 07:09] LABS: BASOPHILS % 0.4 % (0.0-2.0); EOSINOPHILS % 1.6 % (0.0-5.0); HEMOGLOBIN. 10.5 g/dL (12.0-16.0); LYMPHOCYTES % 17.1 % (20.0-50.0); MEAN CORPUSCULAR HEMOGLOBIN 25.2 pg (28.0-32.0); MEAN CORPUSCULAR VOLUME 76.9 fL (81.0-99.0); MEAN PLATELET VOLUME 8.5 fl (7.4-10.4); MONOCYTES % 4.6 % (2.0-8.0); NEUTROPHILS % 76.3 % (40.0-76.0); PLATELET 302 x1000/uL (130-400); RED BLOOD CELL COUNT 4.16 mill/uL (4.2-5.4); RED CELL DISTRIBUTION WIDTH 20.5 % (11.6-14.6)
[2021-05-10] MEDS: INSULIN LISPRO 100 UNITS/ML SUBCUT SCH ×4 (07:38→21:10)
[2021-05-10] MEDS: BLOOD SUGAR DIAGNOSTIC STRIP TEST SCH ×4 (07:38→20:15)
[2021-05-10 07:40] LABS: CHLORIDE 111 mEq/L (98-107)
[2021-05-10 08:00] VITALS: BP 105/56
[2021-05-10] MEDS: NICOTINE 7MG PATCH TD SCH (09:09)
[2021-05-10] MEDS: LINEZOLID 600 MG PREMIX 300 ML IV SCH ×2 (09:09→20:05)
[2021-05-10] MEDS: ASPIRIN 81MG TABLET PO SCH (09:09)
[2021-05-10] MEDS: RISPERIDONE 1MG TABLET PO SCH (09:10)
[2021-05-10] MEDS: MIDODRINE HCL 5MG TABLET PO SCH ×3 (09:10→17:15)
[2021-05-10] MEDS: FAMOTIDINE 20MG/2ML VIAL IV SCH (09:10)
[2021-05-10] MEDS: INSULIN GLARGINE UD 100 UNITS/ML SYR SUBCUT SCH ×2 (10:05→21:09)
[2021-05-10 12:00] VITALS: BP 95/59
[2021-05-10] MEDS: BUDESONIDE 0.5MG/2ML NEB HHN SCH ×2 (13:01→20:51)
[2021-05-10 16:00] VITALS: BP 101/53
[2021-05-10 20:00] VITALS: BP 120/69
[2021-05-10] MEDS: ATORVASTATIN CALCIUM 20MG TABLET PO SCH (20:04)
[2021-05-11] VITALS: BP 97/48
[2021-05-11] MEDS: IPRATROPIUM/ALBUTEROL 0.5-3(2.5)MG/3ML NEB NEB SCH ×4 (02:37→19:40)
[2021-05-11 04:00] VITALS: BP 115/61
[2021-05-11] MEDS: PIPERACILLIN/TAZOBACTAM 3.375 G in DEXTROSE 5% WATER 50 ML IV SCH ×3 (06:10→21:26)
[2021-05-11] MEDS: INSULIN LISPRO 100 UNITS/ML SUBCUT SCH ×4 (06:23→21:27)
[2021-05-11] MEDS: BLOOD SUGAR DIAGNOSTIC STRIP TEST SCH ×4 (06:23→20:25)
[2021-05-11 08:00] VITALS: BP 142/85
[2021-05-11] MEDS: BUDESONIDE 0.5MG/2ML NEB HHN SCH ×2 (08:40→19:40)
[2021-05-11] MEDS: RISPERIDONE 1MG TABLET PO SCH (09:37)
[2021-05-11] MEDS: ASPIRIN 81MG TABLET PO SCH (09:38)
[2021-05-11] MEDS: NICOTINE 7MG PATCH TD SCH (09:38)
[2021-05-11] MEDS: MIDODRINE HCL 5MG TABLET PO SCH ×3 (09:38→16:48)
[2021-05-11] MEDS: FAMOTIDINE 20MG/2ML VIAL IV SCH (09:38)
[2021-05-11] MEDS: LINEZOLID 600 MG PREMIX 300 ML IV SCH ×2 (09:38→20:18)
[2021-05-11] MEDS: SODIUM CHLORIDE 0.9% 1,000 ML IV SCH ×2 (09:40→18:40)
[2021-05-11] MEDS: INSULIN GLARGINE UD 100 UNITS/ML SYR SUBCUT SCH ×2 (10:48→21:26)
[2021-05-11 12:00] VITALS: BP 140/82
[2021-05-11 16:00] VITALS: BP 121/66
[2021-05-11 20:00] VITALS: BP 107/50
[2021-05-11] MEDS: ATORVASTATIN CALCIUM 20MG TABLET PO SCH (20:19)
[2021-05-12] VITALS: BP 93/42
[2021-05-12] MEDS: IPRATROPIUM/ALBUTEROL 0.5-3(2.5)MG/3ML NEB NEB SCH ×3 (01:11→13:49)
[2021-05-12 04:00] VITALS: BP 107/50
[2021-05-12] MEDS: SODIUM CHLORIDE 0.9% 1,000 ML IV SCH ×2 (06:04→14:23)
[2021-05-12] MEDS: BLOOD SUGAR DIAGNOSTIC STRIP TEST SCH ×4 (06:10→21:59)
[2021-05-12] MEDS: INSULIN LISPRO 100 UNITS/ML SUBCUT SCH ×4 (06:10→22:01)
[2021-05-12 08:00] VITALS: BP 118/68
[2021-05-12] MEDS: NICOTINE 7MG PATCH TD SCH (09:45)
[2021-05-12] MEDS: ASPIRIN 81MG TABLET PO SCH (09:45)
[2021-05-12] MEDS: RISPERIDONE 1MG TABLET PO SCH (09:45)
[2021-05-12] MEDS: LINEZOLID 600 MG PREMIX 300 ML IV SCH ×2 (09:45→22:02)
[2021-05-12] MEDS: MIDODRINE HCL 5MG TABLET PO SCH ×3 (09:46→17:00)
[2021-05-12] MEDS: FAMOTIDINE 20MG TABLET PO SCH (09:46)
[2021-05-12] MEDS: INSULIN GLARGINE UD 100 UNITS/ML SYR SUBCUT SCH ×2 (09:47→22:01)
[2021-05-12 12:00] VITALS: BP 111/65
[2021-05-12 16:00] VITALS: BP 135/69
[2021-05-12 19:36] VITALS: BP 117/68
[2021-05-12] MEDS: ATORVASTATIN CALCIUM 20MG TABLET PO SCH (22:02)
[2021-05-13] VITALS: BP 106/52
[2021-05-13] MEDS: SODIUM CHLORIDE 0.9% 1,000 ML IV SCH ×2 (00:30→11:23)
[2021-05-13] MEDS: BLOOD SUGAR DIAGNOSTIC STRIP TEST SCH ×3 (07:03→17:17)
[2021-05-13] MEDS: INSULIN LISPRO 100 UNITS/ML SUBCUT SCH ×3 (07:03→17:23)
[2021-05-13 08:00] VITALS: BP 123/61
[2021-05-13] MEDS: FAMOTIDINE 20MG TABLET PO SCH (08:54)
[2021-05-13] MEDS: ASPIRIN 81MG TABLET PO SCH (08:54)
[2021-05-13] MEDS: RISPERIDONE 1MG TABLET PO SCH (08:54)
[2021-05-13] MEDS: MIDODRINE HCL 5MG TABLET PO SCH ×3 (08:54→17:00)
[2021-05-13] MEDS: NICOTINE 7MG PATCH TD SCH (08:55)
[2021-05-13] MEDS: LINEZOLID 600 MG PREMIX 300 ML IV SCH (09:26)
[2021-05-13] MEDS: INSULIN GLARGINE UD 100 UNITS/ML SYR SUBCUT SCH (11:18)
[2021-05-13 12:00] VITALS: BP 106/59
[2021-05-13] MEDS ORDERED: LINE600T14 MT (14:19)
[2021-05-13 16:00] VITALS: BP 146/79
[2021-05-13 16:57] VITALS: BP 106/59
== END 2021-05-13 18:16 | disposition home or self-care (01) | DRG 871 ==
LOC: ER 03:02 → MICUSO 06:20 → EDBEDREQTM 06:22 → EDBEDREQSVC 06:22 → EDBEDREQ 06:22 → SUPCPDRO 12:07 → MICUSO 05-06 08:48 → CVICU 05-06 08:48 → 5EST 05-07 10:10 → 8WST 05-08 11:14
PROVIDERS: ADMIT Internal Medicine; ATTEND Internal Medicine
PROC: 02HV33Z Insertion of Infusion Device into Superior Vena Cava, Percutaneous Approach (ICD-10-PCS; principal; 2021-05-04)
PROC: B548ZZA Ultrasonography of Superior Vena Cava, Guidance (ICD-10-PCS; 2021-05-04)
PROC: 5A09357 Assistance with Respiratory Ventilation, Less than 24 Consecutive Hours, Continuous Positive Airway Pressure (ICD-10-PCS; 2021-05-04)
PROC: 02HV33Z Insertion of Infusion Device into Superior Vena Cava, Percutaneous Approach (ICD-10-PCS; 2021-05-07)
PROC: B548ZZA Ultrasonography of Superior Vena Cava, Guidance (ICD-10-PCS; 2021-05-07)
DX: A41.81 Sepsis due to Enterococcus (principal); J18.9 Pneumonia, unspecified organism; R65.21 Severe sepsis with septic shock; J96.21 Acute and chronic respiratory failure with hypoxia; J96.22 Acute and chronic respiratory failure with hypercapnia; N17.0 Acute kidney failure with tubular necrosis; I63.9 Cerebral infarction, unspecified; J44.0 Chronic obstructive pulmonary disease with (acute) lower respiratory infection; J44.1 Chronic obstructive pulmonary disease with (acute) exacerbation; I50.30 Unspecified diastolic (congestive) heart failure; I13.0 Hypertensive heart and chronic kidney disease with heart failure and stage 1 through stage 4 chronic kidney disease, or unspecified chronic kidney disease; Z16.21 Resistance to vancomycin; E66.2 Morbid (severe) obesity with alveolar hypoventilation; N39.0 Urinary tract infection, site not specified; Z68.41 Body mass index [BMI] 40.0-44.9, adult; E78.00 Pure hypercholesterolemia, unspecified; E78.5 Hyperlipidemia, unspecified; E86.0 Dehydration; M50.30 Other cervical disc degeneration, unspecified cervical region; E11.22 Type 2 diabetes mellitus with diabetic chronic kidney disease; G90.8 Other disorders of autonomic nervous system; E11.65 Type 2 diabetes mellitus with hyperglycemia; N18.32 Chronic kidney disease, stage 3b; I27.20 Pulmonary hypertension, unspecified; R53.81 Other malaise; F20.9 Schizophrenia, unspecified; M48.02 Spinal stenosis, cervical region; F41.9 Anxiety disorder, unspecified; Z20.822 Contact with and (suspected) exposure to COVID-19; Z90.710 Acquired absence of both cervix and uterus; Z99.81 Dependence on supplemental oxygen; Z79.899 Other long term (current) drug therapy; Z79.82 Long term (current) use of aspirin; Z79.84 Long term (current) use of oral hypoglycemic drugs; Z79.4 Long term (current) use of insulin; Z98.891 History of uterine scar from previous surgery; Z87.891 Personal history of nicotine dependence; Z87.01 Personal history of pneumonia (recurrent)
CPT/HCPCS: 36415; 36600; 70551; 71045; 71250; 74018; 74176; 76770; 76937; 78580; 80048; 80053; 80061; 80202; 80305; 81003; 82140; 82375; 82550; 82553; 82805; 82962; 83036; 83605; 83880; 84145; 84439; 84443; 84484; 85025; 87077; 87186; 87426; 92610; 93306; 93880; 93970; 94640; 94660; 97110; 97116; 97162; 97166; 97530; 97535; 99285; C1725; J0456; J1100; J1815; J2020; J2370; J2405; J2543; J2920; J3370; J3490; J7030; J7040; J7060; J7626

== ENCOUNTER 2021-05-26 14:29 | Inpatient (IN) | payer MEDICARE, MEDICAID ==
[~2021-05-26] VITALS: Ht 157.5 cm; Wt 101.6 kg
[~2021-05-26 14:29] MED LIST changes: +LINE600T14 MT
[2021-05-26 16:39] LABS: BASOPHILS % 0.4 % (0.0-2.0); CHLORIDE 101 mEq/L (98-107); EOSINOPHILS % 1.8 % (0.0-5.0); HEMATOCRIT. 31.6 % (36.0-48.0); HEMOGLOBIN. 10.4 g/dL (12.0-16.0); LYMPHOCYTES % 32.9 % (20.0-50.0); MEAN CORPUSCULAR VOLUME 79.4 fL (81.0-99.0); MEAN PLATELET VOLUME 8.4 fl (7.4-10.4); MONOCYTES % 6.4 % (2.0-8.0); NEUTROPHILS % 58.5 % (40.0-76.0); PLATELET 475 x1000/uL (130-400); RED BLOOD CELL COUNT 3.98 mill/uL (4.2-5.4)
[2021-05-26 16:43] LABS: PROTHROMBIN TIME 10.9 sec (9.6-11.0)
[2021-05-26] MEDS ORDERED: HEPARIN 25,000 UNITS PREMIX 250 ML IV SCH ×2 (17:15→17:45)
[2021-05-26] MEDS ORDERED: HEPARIN BOLUS PRN aPTT 37-44 IV (17:45)
[2021-05-26] MEDS ORDERED: HEPARIN 80 UNITS/KG BOLUS IV SCH (17:45)
[2021-05-27] MEDS: HEPARIN BOLUS PRN aPTT <36 IV ×3 (03:56→22:22)
[2021-05-27 09:58] VITALS: BP 101/59
[2021-05-27 12:00] VITALS: BP 101/64
[2021-05-27] MEDS: ASPIRIN 81MG EC TABLET PO SCH (12:14)
[2021-05-27] MEDS: SERTRALINE HCL 100MG TABLET PO SCH (12:14)
[2021-05-27] MEDS: LORATADINE 10MG TABLET PO SCH (12:14)
[2021-05-27] MEDS: ATORVASTATIN CALCIUM 20MG TABLET PO SCH (12:15)
[2021-05-27] MEDS: FUROSEMIDE 40MG TABLET PO SCH (12:15)
[2021-05-27 12:34] LABS: BASOPHILS % 0.5 % (0.0-2.0); EOSINOPHILS % 1.6 % (0.0-5.0); HEMATOCRIT. 30.3 % (36.0-48.0); HEMOGLOBIN. 9.9 g/dL (12.0-16.0); LYMPHOCYTES % 28.8 % (20.0-50.0); MEAN CORPUSCULAR VOLUME 79.4 fL (81.0-99.0); MEAN PLATELET VOLUME 8.3 fl (7.4-10.4); NEUTROPHILS % 63.1 % (40.0-76.0); PLATELET 443 x1000/uL (130-400); RED BLOOD CELL COUNT 3.81 mill/uL (4.2-5.4); RED CELL DISTRIBUTION WIDTH 20.6 % (11.6-14.6)
[2021-05-27 12:41] LABS: CHLORIDE 102 mEq/L (98-107)
[2021-05-27 16:00] VITALS: BP 111/68
[2021-05-27 20:00] VITALS: BP 105/61
[2021-05-27] MEDS: ENOXAPARIN 100MG/ML SYR SUBCUT SCH (23:09)
[2021-05-28] VITALS (7 sets, daily range): BP systolic 93–138; BP diastolic 40–69
[2021-05-28] MEDS: FUROSEMIDE 40MG TABLET PO SCH (08:40)
[2021-05-28] MEDS: LORATADINE 10MG TABLET PO SCH (08:41)
[2021-05-28] MEDS: SERTRALINE HCL 100MG TABLET PO SCH (08:41)
[2021-05-28] MEDS: ASPIRIN 81MG EC TABLET PO SCH (08:42)
[2021-05-28] MEDS: ENOXAPARIN 100MG/ML SYR SUBCUT SCH ×2 (08:44→20:59)
[2021-05-28] MEDS ORDERED: SERTRALINE HCL 100MG TABLET PO SCH (09:00)
[2021-05-28] MEDS: ATORVASTATIN CALCIUM 20MG TABLET PO SCH (09:54)
[2021-05-28 12:46] LABS: BASOPHILS % 0.5 % (0.0-2.0); EOSINOPHILS % 1.6 % (0.0-5.0); HEMATOCRIT. 28.9 % (36.0-48.0); HEMOGLOBIN. 9.7 g/dL (12.0-16.0); LYMPHOCYTES % 25.9 % (20.0-50.0); MEAN CORPUSCULAR HEMOGLOBIN 26.8 pg (28.0-32.0); MEAN CORPUSCULAR VOLUME 80.1 fL (81.0-99.0); MEAN PLATELET VOLUME 8.5 fl (7.4-10.4); MONOCYTES % 5.5 % (2.0-8.0); NEUTROPHILS % 66.5 % (40.0-76.0); PLATELET 512 x1000/uL (130-400); RED BLOOD CELL COUNT 3.62 mill/uL (4.2-5.4); RED CELL DISTRIBUTION WIDTH 21.3 % (11.6-14.6)
[2021-05-28 13:15] LABS: CHLORIDE 98 mEq/L (98-107)
[2021-05-28] MEDS ORDERED: DIPHENHYDRAMINE 50MG/ML VIAL IV PRN (14:45)
[2021-05-28] MEDS ORDERED: ACETAMINOPHEN 650MG SUPP PR PRN (14:45)
[2021-05-28] MEDS ORDERED: ONDANSETRON HCL 4MG/2ML INJ IV PRN (14:45)
[2021-05-28] MEDS ORDERED: ACETAMINOPHEN 325MG TABLET PO PRN (14:45)
[2021-05-28] MEDS ORDERED: DEXTROSE 50% WATER 50ML SYRINGE IV PRN (14:45)
[2021-05-28] MEDS ORDERED: HYDROCODONE/ACETAMINOPHEN 5/325MG TABLET PO PRN (14:45)
[2021-05-28] MEDS ORDERED: LACTULOSE 20G/30ML UDC PO PRN (14:45)
[2021-05-28 16:49] LABS: CLARITY URINE CLEAR (CLEAR); COLOR URINE YELLOW (YELLOW); KETONES URINE NEGATIVE (NEGATIVE); LEUKOCYTE ESTERASE URINE TRACE (NEGATIVE); NITRITE URINE NEGATIVE (NEGATIVE); OCCULT BLOOD URINE 1+ (NEGATIVE); PH URINE 5.5 (4.5-8.0); PROTEIN URINE NEGATIVE (NEGATIVE); SPECIFIC GRAVITY URINE 1.011 (1.005-1.030); UROBILINOGEN URINE 0.2 E.U./dL (0.2-1.0)
[2021-05-28] MEDS: BLOOD SUGAR DIAGNOSTIC STRIP TEST SCH ×2 (17:17→21:29)
[2021-05-28] MEDS: INSULIN LISPRO 100 UNITS/ML SUBCUT SCH ×2 (19:05→21:00)
[2021-05-29] VITALS: BP 93/55
[2021-05-29 04:00] VITALS: BP 100/53
[2021-05-29] MEDS: BLOOD SUGAR DIAGNOSTIC STRIP TEST SCH ×3 (06:34→17:00)
[2021-05-29] MEDS: INSULIN LISPRO 100 UNITS/ML SUBCUT SCH ×3 (06:36→17:25)
[2021-05-29 07:32] LABS: BASOPHILS % 0.5 % (0.0-2.0); EOSINOPHILS % 1.2 % (0.0-5.0); HEMATOCRIT. 30.4 % (36.0-48.0); HEMOGLOBIN. 9.8 g/dL (12.0-16.0); LYMPHOCYTES % 27.3 % (20.0-50.0); MEAN CORPUSCULAR VOLUME 80.6 fL (81.0-99.0); MEAN PLATELET VOLUME 8.4 fl (7.4-10.4); MONOCYTES % 6.5 % (2.0-8.0); NEUTROPHILS % 64.5 % (40.0-76.0); PLATELET 520 x1000/uL (130-400); RED BLOOD CELL COUNT 3.77 mill/uL (4.2-5.4); RED CELL DISTRIBUTION WIDTH 21.2 % (11.6-14.6)
[2021-05-29 08:23] VITALS: BP 98/55
[2021-05-29] MEDS: FUROSEMIDE 40MG TABLET PO SCH (09:00)
[2021-05-29] MEDS: ASPIRIN 81MG EC TABLET PO SCH (09:15)
[2021-05-29] MEDS: ATORVASTATIN CALCIUM 20MG TABLET PO SCH (09:15)
[2021-05-29] MEDS: ENOXAPARIN 100MG/ML SYR SUBCUT SCH (09:15)
[2021-05-29] MEDS: SERTRALINE HCL 100MG TABLET PO SCH (09:15)
[2021-05-29] MEDS: LORATADINE 10MG TABLET PO SCH (09:15)
[2021-05-29 12:00] VITALS: BP 107/54
[2021-05-29] MEDS ORDERED: APIX5TAB MT (12:38)
[2021-05-29] MEDS ORDERED: APIX5TAB PO (12:38)
[2021-05-29 16:00] VITALS: BP 114/66
[2021-05-29 16:51] VITALS: BP 114/66
== END 2021-05-29 17:55 | disposition home or self-care (01) | DRG 300 ==
LOC: ER 14:57 → MICUSO 18:37 → 7EST 05-27 09:54
PROVIDERS: ADMIT Internal Medicine; ATTEND Internal Medicine
DX: I82.A11 Acute embolism and thrombosis of right axillary vein (principal); E66.2 Morbid (severe) obesity with alveolar hypoventilation; Z68.41 Body mass index [BMI] 40.0-44.9, adult; J44.1 Chronic obstructive pulmonary disease with (acute) exacerbation; I50.9 Heart failure, unspecified; E78.5 Hyperlipidemia, unspecified; I82.621 Acute embolism and thrombosis of deep veins of right upper extremity; E11.9 Type 2 diabetes mellitus without complications; F20.9 Schizophrenia, unspecified; I11.0 Hypertensive heart disease with heart failure; Z99.81 Dependence on supplemental oxygen; Z90.710 Acquired absence of both cervix and uterus; Z87.01 Personal history of pneumonia (recurrent); Z79.84 Long term (current) use of oral hypoglycemic drugs; Z79.899 Other long term (current) drug therapy; Z86.73 Personal history of transient ischemic attack (TIA), and cerebral infarction without residual deficits; Z79.01 Long term (current) use of anticoagulants
CPT/HCPCS: 36415; 71045; 80048; 80053; 81003; 82962; 85025; 93971; 99285; J1644; J1650; J1815

== ENCOUNTER 2021-06-05 16:39 | Inpatient (IN) | payer MEDICARE, OTHER ==
[~2021-06-05] VITALS: Ht 160 cm; Wt 99.1 kg
[~2021-06-05 16:39] MED LIST changes: +APIX5TAB MT; +APIX5TAB PO; -LINE600T14 MT; -P20 MT; -RISP05 MT
[2021-06-05] MEDS ORDERED: IPRATROPIUM BROMIDE (0.02%) 0.5MG/2.5ML NEB HHN STA (17:09)
[2021-06-05] MEDS ORDERED: ALBUTEROL (0.083%) 2.5MG/3ML NEB HHN STA (17:09)
[2021-06-05 17:57] LABS: BASOPHILS % 0.4 % (0.0-2.0); EOSINOPHILS % 0.1 % (0.0-5.0); HEMATOCRIT. 29.3 % (36.0-48.0); HEMOGLOBIN. 9.4 g/dL (12.0-16.0); LYMPHOCYTES % 10.4 % (20.0-50.0); MEAN CORPUSCULAR HEMOGLOBIN 25.9 pg (28.0-32.0); MEAN CORPUSCULAR VOLUME 80.9 fL (81.0-99.0); MEAN PLATELET VOLUME 9.1 fl (7.4-10.4); MONOCYTES % 4.4 % (2.0-8.0); NEUTROPHILS % 84.7 % (40.0-76.0); PLATELET 425 x1000/uL (130-400); RED BLOOD CELL COUNT 3.63 mill/uL (4.2-5.4); RED CELL DISTRIBUTION WIDTH 20.8 % (11.6-14.6)
[2021-06-05 18:03] LABS: CHLORIDE 96 mEq/L (98-107)
[2021-06-05] MEDS ORDERED: PIPERACILLIN/TAZ 3.375G PREMIX 50 ML IV ONE (18:45)
[2021-06-05] MEDS ORDERED: VANCOMYCIN 1 G PREMIX 200 ML IV ONE (18:45)
[2021-06-05] MEDS ORDERED: NOREPINEPHRINE 8 MG in DEXT 5% WATER 242 ML IV STA (19:02)
[2021-06-05] MEDS: NOREPINEPHRINE 8MG/250ML PMX 250 ML IV SCH (20:19)
[2021-06-05 21:09] LABS: CLARITY URINE CLEAR (CLEAR); COLOR URINE YELLOW (YELLOW); KETONES URINE TRACE (NEGATIVE); LEUKOCYTE ESTERASE URINE 2+ (NEGATIVE); NITRITE URINE NEGATIVE (NEGATIVE); OCCULT BLOOD URINE NEGATIVE (NEGATIVE); PROTEIN URINE 1+ (NEGATIVE); UROBILINOGEN URINE 0.2 E.U./dL (0.2-1.0)
[2021-06-06] MEDS: NOREPINEPHRINE 8MG/250ML PMX 250 ML IV SCH ×2 (02:06→07:36)
[2021-06-06] MEDS: MEROPENEM 500MG in NORMAL SALINE 50ML IV SCH ×2 (03:40→15:41)
[2021-06-06] MEDS ORDERED: GUAIFENESIN 200MG/10ML SUGAR FREE UDC PO PRN (09:45)
[2021-06-06] MEDS ORDERED: CLONIDINE 0.1MG TABLET PO PRN (09:45)
[2021-06-06] MEDS ORDERED: ACETAMINOPHEN 650MG SUPP PR PRN (09:45)
[2021-06-06] MEDS ORDERED: DEXTROSE 50% WATER 50ML SYRINGE IV PRN (09:45)
[2021-06-06] MEDS ORDERED: NA PHOS,M-B/NA PHOS,DI-BA ENEMA 118ML PR PRN (09:45)
[2021-06-06] MEDS ORDERED: DOCUSATE SODIUM 100MG CAPSULE PO PRN (09:45)
[2021-06-06] MEDS ORDERED: MAGNESIUM/ALUMINUM HYDROXIDE/SIMETHICONE 30ML UDC PO PRN (09:45)
[2021-06-06] MEDS ORDERED: HYDROCODONE/ACETAMINOPHEN 5/325MG TABLET PO PRN (09:45)
[2021-06-06] MEDS ORDERED: IPRATROPIUM/ALBUTEROL 0.5-3(2.5)MG/3ML NEB NEB PRN (09:45)
[2021-06-06] MEDS ORDERED: ACETAMINOPHEN 325MG TABLET PO PRN (09:45)
[2021-06-06] MEDS ORDERED: VANCOMYCIN 750 MG PREMIX 150 ML IV NR (10:30)
[2021-06-06 11:08] LABS: BASOPHILS % 0.8 % (0.0-2.0); EOSINOPHILS % 0.2 % (0.0-5.0); HEMATOCRIT. 32.9 % (36.0-48.0); HEMOGLOBIN. 10.7 g/dL (12.0-16.0); LYMPHOCYTES % 13.9 % (20.0-50.0); MEAN CORPUSCULAR VOLUME 80.4 fL (81.0-99.0); MEAN PLATELET VOLUME 8.6 fl (7.4-10.4); NEUTROPHILS % 80.1 % (40.0-76.0); PLATELET 580 x1000/uL (130-400); RED BLOOD CELL COUNT 4.09 mill/uL (4.2-5.4); RED CELL DISTRIBUTION WIDTH 20.5 % (11.6-14.6)
[2021-06-06 11:15] LABS: CHLORIDE 96 mEq/L (98-107)
[2021-06-06 11:17] LABS: INR 1.1; PROTHROMBIN TIME 11.6 sec (9.6-11.0)
[2021-06-06] MEDS: ONDANSETRON HCL 4MG/2ML INJ IV PRN ×2 (11:30→18:42)
[2021-06-06] MEDS ORDERED: INSULIN LISPRO 100 UNITS/ML SUBCUT SCH (12:00)
[2021-06-06 12:12] LABS: CREATINE KINASE 52 IU/L (26-192)
[2021-06-06] MEDS: BLOOD SUGAR DIAGNOSTIC STRIP TEST SCH ×3 (12:12→21:00)
[2021-06-06] MEDS: LORAZEPAM 0.5MG TABLET PO PRN ×2 (12:12→18:42)
[2021-06-06] MEDS ORDERED: NALOXONE HCL 0.4MG/ML VIAL IV PRN (12:45)
[2021-06-06] MEDS ORDERED: ENOXAPARIN 100MG/ML SYR SUBCUT SCH (13:00)
[2021-06-06] MEDS: SODIUM CHLORIDE 0.45% 1,000 ML IV SCH ×2 (13:09→23:40)
[2021-06-06] MEDS: NOREPINEPHRINE 8 MG in DEXTROSE 5% WATER 250 ML IV PRN (13:56)
[2021-06-06] MEDS: DIPHENHYDRAMINE 50MG/ML VIAL IV PRN ×2 (14:32→18:42)
[2021-06-06 14:43] LABS: *BARBITURATES SCREEN URINE NEGATIVE (NEGATIVE); *BENZODIAZEPINES SCREEN URINE NEGATIVE (NEGATIVE); *COCAINE SCREEN URINE NEGATIVE (NEGATIVE); METHADONE URINE SCREEN NEGATIVE (NEGATIVE); OPIATES URINE SCREEN NEGATIVE (NEGATIVE); PHENCYCLIDINE URINE SCREEN NEGATIVE (NEGATIVE)
[2021-06-06 14:45] LABS: *AMPHETAMINES SCREEN URINE NEGATIVE (NEGATIVE); CANNABINOID URINE SCREEN NEGATIVE (NEGATIVE)
[2021-06-06] MEDS ORDERED: INSULIN GLARGINE UD 100 UNITS/ML SYR SUBCUT NR (17:00)
[2021-06-06 17:22] LABS: CREATINE KINASE 43 IU/L (26-192)
[2021-06-06 17:23] LABS: CREATINE KINASE MB FRACTION < 1.0 ng/mL (0.5-3.6)
[2021-06-06] MEDS: INSULIN LISPRO 100 UNITS/ML SUBCUT SCH ×2 (17:24→21:00)
[2021-06-06] MEDS ORDERED: INSULIN GLARGINE UD 100 UNITS/ML SYR SUBCUT SCH (23:30)
[2021-06-06] MEDS: FAMOTIDINE 20MG TABLET PO SCH (23:40)
[2021-06-07] VITALS (56 sets, daily range): BP systolic 56–159; BP diastolic 19–99
[2021-06-07] MEDS: DIPHENHYDRAMINE 50MG/ML VIAL IV PRN (01:38)
[2021-06-07] MEDS: MEROPENEM 500MG in NORMAL SALINE 50ML IV SCH (03:24)
[2021-06-07] MEDS: LORAZEPAM 0.5MG TABLET PO PRN ×2 (05:03→16:31)
[2021-06-07] MEDS: BLOOD SUGAR DIAGNOSTIC STRIP TEST SCH ×4 (06:30→21:10)
[2021-06-07] MEDS: SODIUM CHLORIDE 0.45% 1,000 ML IV SCH ×2 (06:31→14:33)
[2021-06-07 06:32] LABS: CHLORIDE 94 mEq/L (98-107)
[2021-06-07 06:33] LABS: BASOPHILS % 0.2 % (0.0-2.0); EOSINOPHILS % 1.7 % (0.0-5.0); HEMATOCRIT. 32.6 % (36.0-48.0); HEMOGLOBIN. 10.4 g/dL (12.0-16.0); LYMPHOCYTES % 16.1 % (20.0-50.0); MEAN CORPUSCULAR HEMOGLOBIN 25.7 pg (28.0-32.0); MEAN CORPUSCULAR VOLUME 80.2 fL (81.0-99.0); MEAN PLATELET VOLUME 8.8 fl (7.4-10.4); MONOCYTES % 5.6 % (2.0-8.0); NEUTROPHILS % 76.4 % (40.0-76.0); PLATELET 547 x1000/uL (130-400); RED BLOOD CELL COUNT 4.06 mill/uL (4.2-5.4); RED CELL DISTRIBUTION WIDTH 20.5 % (11.6-14.6)
[2021-06-07 06:38] LABS: LDL CHOLESTEROL 42 mg/dL (5-100)
[2021-06-07 06:39] LABS: CREATINE KINASE 37 IU/L (26-192); CREATINE KINASE MB FRACTION 1.2 ng/mL (0.5-3.6); HDL CHOLESTEROL 24 mg/dL (40-59)
[2021-06-07 06:40] LABS: T4 FREE 1.25 ng/dL (0.76-1.46)
[2021-06-07] MEDS: INSULIN LISPRO 100 UNITS/ML SUBCUT SCH ×4 (06:41→21:19)
[2021-06-07 10:45] LABS: BG BASE EXCESS 2.6 mmol/L (-2.0-2.0); BG CARBOXYHEMOGLOBIN 0.3 % (0.5-1.5); BG DEOXYHEMOGLOBIN 5.7 % (0.0-5.0); BG FRACTION INSPIRED OXYGEN 36; BG HCO3 ACT 28.6 mmol/L (22.0-26.0); BG METHEMOGLOBIN 0.6 % (0.0-1.5); BG OXYGEN SATURATION 94.2 % (92.0-98.5); BG OXYHEMOGLOBIN 93.4 % (94.0-97.0); BG PCO2 50.8 mmHg (35.0-45.0); BG PH 7.369 (7.350-7.450); BG TOTAL HEMOGLOBIN 11.9 g/dL (12.0-18.0); BG VENT MODE NASAL CANNULA
[2021-06-07] MEDS: INSULIN GLARGINE UD 100 UNITS/ML SYR SUBCUT SCH ×2 (11:26→22:58)
[2021-06-07] MEDS: NOREPINEPHRINE 8 MG in DEXTROSE 5% WATER 250 ML IV PRN (13:14)
[2021-06-07] MEDS: RISPERIDONE 1MG TABLET PO SCH (14:16)
[2021-06-07] MEDS: ENOXAPARIN 100MG/ML SYR SUBCUT SCH (17:13)
[2021-06-07] MEDS: MEROPENEM 1000MG in NORMAL SALINE 100ML IV SCH (17:13)
[2021-06-07] MEDS: FAMOTIDINE 20MG TABLET PO SCH (21:18)
[2021-06-08] VITALS (72 sets, daily range): BP systolic 74–147; BP diastolic 25–118
[2021-06-08] MEDS: NOREPINEPHRINE 8 MG in DEXTROSE 5% WATER 250 ML IV PRN ×2 (00:30→13:11)
[2021-06-08] MEDS: SODIUM CHLORIDE 0.45% 1,000 ML IV SCH ×3 (03:38→23:01)
[2021-06-08] MEDS: BLOOD SUGAR DIAGNOSTIC STRIP TEST SCH ×4 (06:18→21:43)
[2021-06-08] MEDS: ENOXAPARIN 100MG/ML SYR SUBCUT SCH ×2 (06:24→17:20)
[2021-06-08] MEDS: INSULIN LISPRO 100 UNITS/ML SUBCUT SCH ×4 (06:24→21:59)
[2021-06-08] MEDS: MEROPENEM 1000MG in NORMAL SALINE 100ML IV SCH ×2 (06:24→17:38)
[2021-06-08] MEDS: RISPERIDONE 1MG TABLET PO SCH (09:03)
[2021-06-08] MEDS: VANCOMYCIN 1 G PREMIX 200 ML IV SCH (09:31)
[2021-06-08] MEDS: INSULIN GLARGINE UD 100 UNITS/ML SYR SUBCUT SCH ×2 (09:32→23:00)
[2021-06-08] MEDS: MIDODRINE HCL 5MG TABLET PO SCH ×3 (11:45→17:20)
[2021-06-08] MEDS: FAMOTIDINE 20MG TABLET PO SCH (21:58)
[2021-06-09] VITALS (99 sets, daily range): BP systolic 61–184; BP diastolic 21–159
[2021-06-09] MEDS: MEROPENEM 1000MG in NORMAL SALINE 100ML IV SCH ×2 (05:03→18:26)
[2021-06-09 05:43] LABS: BASOPHILS % 0.4 % (0.0-2.0); EOSINOPHILS % 2.1 % (0.0-5.0); HEMATOCRIT. 30.5 % (36.0-48.0); HEMOGLOBIN. 10.2 g/dL (12.0-16.0); MEAN CORPUSCULAR HEMOGLOBIN 26.4 pg (28.0-32.0); MEAN CORPUSCULAR VOLUME 79.3 fL (81.0-99.0); MEAN PLATELET VOLUME 8.2 fl (7.4-10.4); MONOCYTES % 4.6 % (2.0-8.0); NEUTROPHILS % 65.9 % (40.0-76.0); PLATELET 533 x1000/uL (130-400); RED BLOOD CELL COUNT 3.84 mill/uL (4.2-5.4); RED CELL DISTRIBUTION WIDTH 19.4 % (11.6-14.6)
[2021-06-09] MEDS: BLOOD SUGAR DIAGNOSTIC STRIP TEST SCH ×4 (05:53→21:11)
[2021-06-09] MEDS: ENOXAPARIN 100MG/ML SYR SUBCUT SCH ×2 (06:40→18:26)
[2021-06-09] MEDS: INSULIN LISPRO 100 UNITS/ML SUBCUT SCH ×4 (06:41→21:59)
[2021-06-09] MEDS: RISPERIDONE 1MG TABLET PO SCH (08:57)
[2021-06-09] MEDS: MIDODRINE HCL 5MG TABLET PO SCH ×3 (08:57→18:25)
[2021-06-09] MEDS: VANCOMYCIN 1 G PREMIX 200 ML IV SCH (08:57)
[2021-06-09] MEDS: INSULIN GLARGINE UD 100 UNITS/ML SYR SUBCUT SCH ×2 (10:54→22:01)
[2021-06-09] MEDS: NOREPINEPHRINE 8 MG in DEXTROSE 5% WATER 250 ML IV PRN (10:55)
[2021-06-09] MEDS: FAMOTIDINE 20MG TABLET PO SCH (22:00)
[2021-06-10] VITALS (100 sets, daily range): BP systolic 77–171; BP diastolic 18–111
[2021-06-10] MEDS: NOREPINEPHRINE 8 MG in DEXTROSE 5% WATER 250 ML IV PRN (04:45)
[2021-06-10] MEDS: MEROPENEM 1000MG in NORMAL SALINE 100ML IV SCH ×2 (05:39→18:34)
[2021-06-10] MEDS: BLOOD SUGAR DIAGNOSTIC STRIP TEST SCH ×4 (06:25→20:43)
[2021-06-10] MEDS: INSULIN LISPRO 100 UNITS/ML SUBCUT SCH ×4 (06:44→20:43)
[2021-06-10] MEDS: ENOXAPARIN 100MG/ML SYR SUBCUT SCH (06:46)
[2021-06-10 07:27] LABS: BASOPHILS % 0.8 % (0.0-2.0); EOSINOPHILS % 1.6 % (0.0-5.0); HEMATOCRIT. 33.3 % (36.0-48.0); HEMOGLOBIN. 10.6 g/dL (12.0-16.0); LYMPHOCYTES % 29.9 % (20.0-50.0); MEAN CORPUSCULAR HEMOGLOBIN 25.5 pg (28.0-32.0); MEAN CORPUSCULAR VOLUME 79.8 fL (81.0-99.0); MONOCYTES % 5.7 % (2.0-8.0); PLATELET 606 x1000/uL (130-400); RED BLOOD CELL COUNT 4.17 mill/uL (4.2-5.4); RED CELL DISTRIBUTION WIDTH 19.3 % (11.6-14.6)
[2021-06-10 07:56] LABS: CHLORIDE 102 mEq/L (98-107)
[2021-06-10] MEDS: RISPERIDONE 1MG TABLET PO SCH (09:19)
[2021-06-10] MEDS: MIDODRINE HCL 5MG TABLET PO SCH ×3 (09:20→18:35)
[2021-06-10] MEDS: INSULIN GLARGINE UD 100 UNITS/ML SYR SUBCUT SCH ×2 (11:01→21:14)
[2021-06-10] MEDS ORDERED: FLUDROCORTISONE ACETATE 0.1MG TABLET PO SCH (11:15)
[2021-06-10] MEDS ORDERED: APIXABAN 5 MG TABLET PO SCH (17:00)
[2021-06-10] MEDS: FAMOTIDINE 20MG TABLET PO SCH (20:47)
[2021-06-17] MEDS ORDERED: APIXABAN 5 MG TABLET PO SCH (17:00)
== END 2021-06-11 00:01 | DRG 871 ==
LOC: ER 16:39 → MICUSO 20:45 → EDBEDREQSVC 20:48 → EDBEDREQTM 20:48 → EDBEDREQ 20:48 → EDBEDREQSVC 06-06 15:32 → MICUSO 06-07 07:11
PROVIDERS: ADMIT Internal Medicine; ATTEND Internal Medicine
PROC: 06HY33Z Insertion of Infusion Device into Lower Vein, Percutaneous Approach (ICD-10-PCS; 2021-06-05)
PROC: B54CZZA Ultrasonography of Left Lower Extremity Veins, Guidance (ICD-10-PCS; 2021-06-05)
PROC: 02HV33Z Insertion of Infusion Device into Superior Vena Cava, Percutaneous Approach (ICD-10-PCS; principal; 2021-06-06)
PROC: B548ZZA Ultrasonography of Superior Vena Cava, Guidance (ICD-10-PCS; 2021-06-06)
DX: A41.81 Sepsis due to Enterococcus (principal); G93.41 Metabolic encephalopathy; N17.0 Acute kidney failure with tubular necrosis; J96.90 Respiratory failure, unspecified, unspecified whether with hypoxia or hypercapnia; J18.9 Pneumonia, unspecified organism; N39.0 Urinary tract infection, site not specified; E87.1 Hypo-osmolality and hyponatremia; R57.9 Shock, unspecified; I13.0 Hypertensive heart and chronic kidney disease with heart failure and stage 1 through stage 4 chronic kidney disease, or unspecified chronic kidney disease; J44.0 Chronic obstructive pulmonary disease with (acute) lower respiratory infection; Z16.21 Resistance to vancomycin; I82.621 Acute embolism and thrombosis of deep veins of right upper extremity; D64.9 Anemia, unspecified; D75.839 Thrombocytosis, unspecified; E11.22 Type 2 diabetes mellitus with diabetic chronic kidney disease; E11.65 Type 2 diabetes mellitus with hyperglycemia; E66.01 Morbid (severe) obesity due to excess calories; E87.5 Hyperkalemia; I50.9 Heart failure, unspecified; N18.1 Chronic kidney disease, stage 1; E78.5 Hyperlipidemia, unspecified; Z20.822 Contact with and (suspected) exposure to COVID-19; F20.9 Schizophrenia, unspecified; F41.9 Anxiety disorder, unspecified; Z79.01 Long term (current) use of anticoagulants; Z79.84 Long term (current) use of oral hypoglycemic drugs; Z79.899 Other long term (current) drug therapy; Z86.718 Personal history of other venous thrombosis and embolism; Z86.73 Personal history of transient ischemic attack (TIA), and cerebral infarction without residual deficits; Z90.710 Acquired absence of both cervix and uterus; Z99.81 Dependence on supplemental oxygen
CPT/HCPCS: 36415; 36600; 71045; 71250; 74176; 76770; 76937; 80048; 80053; 80061; 80202; 80305; 81003; 82140; 82375; 82550; 82553; 82805; 82962; 83036; 83605; 83735; 83880; 84100; 84439; 84443; 84484; 85025; 87426; 93005; 93306; 93970; 94640; 97162; 99291; A6261; C1725; J1200; J1650; J1815; J2185; J2405; J2543; J3370; J3490; J7040; J7060

== ENCOUNTER 2022-02-19 18:02 | Emergency (ER) | payer MEDICARE, OTHER ==
[~2022-02-19] VITALS: Ht 165.1 cm; Wt 107.0 kg
[2022-02-19 18:28] VITALS: BP 163/81
== END 2022-02-19 21:05 | disposition left against medical advice (07) ==
LOC: ER 18:02
DX: Z53.21 Procedure and treatment not carried out due to patient leaving prior to being seen by health care provider (principal)
CPT/HCPCS: 93005

== ENCOUNTER 2022-02-23 12:28 | Emergency (ER) | payer MEDICARE, MEDICAID ==
[~2022-02-23] VITALS: Ht 157.5 cm; Wt 105.0 kg
[2022-02-23] MEDS ORDERED: ACETAMINOPHEN 325MG TABLET PO ONE (13:30)
[2022-02-23 14:47] VITALS: BP 135/71
[2022-02-23 14:58] LABS: BASOPHILS % 0.4 % (0.0-2.0); EOSINOPHILS % 1.5 % (0.0-5.0); HEMATOCRIT. 40.5 % (36.0-48.0); HEMOGLOBIN. 13.2 g/dL (12.0-16.0); LYMPHOCYTES % 23.8 % (20.0-50.0); MEAN CORPUSCULAR VOLUME 79.9 fL (81.0-99.0); MEAN PLATELET VOLUME 10.3 fl (7.4-10.4); NEUTROPHILS % 70.3 % (40.0-76.0); PLATELET 278 x1000/uL (130-400); RED BLOOD CELL COUNT 5.06 mill/uL (4.2-5.4); RED CELL DISTRIBUTION WIDTH 15.1 % (11.6-14.6)
[2022-02-23 15:05] LABS: CHLORIDE 99 mEq/L (98-107)
[2022-02-23 15:11] LABS: PARTIAL THROMBOPLASTIN TIME < 21.0 sec (23.4-31.0); PROTHROMBIN TIME 10.6 sec (9.6-11.0)
[2022-02-23] MEDS ORDERED: ACET-2708 MT (15:48)
== END 2022-02-23 17:25 | disposition home or self-care (01) ==
LOC: ER 12:28
DX: M79.89 Other specified soft tissue disorders (principal); E11.65 Type 2 diabetes mellitus with hyperglycemia; J44.9 Chronic obstructive pulmonary disease, unspecified; I10 Essential (primary) hypertension; F20.9 Schizophrenia, unspecified; Z98.890 Other specified postprocedural states; Z90.710 Acquired absence of both cervix and uterus; Z79.899 Other long term (current) drug therapy
CPT/HCPCS: 36415; 71045; 73060; 73090; 73130; 80048; 83880; 84484; 85025; 93005; 93971; 99284

== ENCOUNTER 2022-04-09 16:50 | Emergency (ER) | payer MEDICAID, MEDICARE ==
[~2022-04-09] VITALS: Ht 167.6 cm; Wt 125.0 kg
[~2022-04-09 16:50] MED LIST changes: +ACET-2708 MT
[2022-04-09 17:23] VITALS: BP 138/75
== END 2022-04-09 19:54 | disposition left against medical advice (07) ==
LOC: ER 16:50
DX: Z53.21 Procedure and treatment not carried out due to patient leaving prior to being seen by health care provider (principal)

== ENCOUNTER 2022-04-13 12:33 | Emergency (ER) | payer MEDICAID ==
[~2022-04-13] VITALS: Ht 167.6 cm; Wt 120.0 kg
[2022-04-13] MEDS ORDERED: OFLO5DRO4 LEFT EAR (18:10)
[2022-04-13 18:26] VITALS: BP 143/63
== END 2022-04-13 18:28 | disposition home or self-care (01) ==
LOC: ER 13:17
DX: T16.2XXA Foreign body in left ear, initial encounter (principal); X58.XXXA Exposure to other specified factors, initial encounter; Y93.89 Activity, other specified; Y92.89 Other specified places as the place of occurrence of the external cause; Y99.8 Other external cause status; H60.92 Unspecified otitis externa, left ear; J45.909 Unspecified asthma, uncomplicated; J44.9 Chronic obstructive pulmonary disease, unspecified; E11.9 Type 2 diabetes mellitus without complications; I10 Essential (primary) hypertension; F20.9 Schizophrenia, unspecified; Z98.890 Other specified postprocedural states; Z90.710 Acquired absence of both cervix and uterus
CPT/HCPCS: 69200; 99284

== ENCOUNTER 2023-02-24 09:04 | Emergency (ER) | payer OTHER, MEDICAID ==
[~2023-02-24] VITALS: Ht 157.5 cm; Wt 105.0 kg
[~2023-02-24 09:04] MED LIST changes: +OFLO5DRO4 LEFT EAR
[2023-02-24 09:08] VITALS: BP 146/70; RESP 18; O2SAT 96
[2023-02-24 09:11] VITALS: PULSE 99
[2023-02-24 11:30] VITALS: TEMP 97.8
[2023-02-24] MEDS ORDERED: ACETAMINOPHEN 325MG TABLET PO ONE (11:30)
[2023-02-24 11:38] LABS: BASOPHILS % 0.6 % (0.0-2.0); EOSINOPHILS % 1.8 % (0.0-5.0); HEMATOCRIT. 38.8 % (36.0-48.0); HEMOGLOBIN. 12.8 g/dL (12.0-16.0); LYMPHOCYTES % 26.3 % (20.0-50.0); MEAN CORPUSCULAR HEMOGLOBIN 27.1 pg (28.0-32.0); MEAN CORPUSCULAR VOLUME 82.1 fL (81.0-99.0); MONOCYTES % 3.3 % (2.0-8.0); PLATELET 314 x1000/uL (130-400); RED BLOOD CELL COUNT 4.73 mill/uL (4.2-5.4); RED CELL DISTRIBUTION WIDTH 15.7 % (11.6-14.6)
[2023-02-24 11:51] LABS: CHLORIDE 99 mEq/L (98-107)
== END 2023-02-24 14:38 | disposition home or self-care (01) ==
LOC: ER 09:04
DX: I82.622 Acute embolism and thrombosis of deep veins of left upper extremity (principal); I10 Essential (primary) hypertension; E11.9 Type 2 diabetes mellitus without complications; J44.1 Chronic obstructive pulmonary disease with (acute) exacerbation; Z79.899 Other long term (current) drug therapy; Z86.59 Personal history of other mental and behavioral disorders; Z98.890 Other specified postprocedural states; Z79.82 Long term (current) use of aspirin
CPT/HCPCS: 36415; 80053; 83880; 84484; 85025; 93005; 93971; 99285

== ENCOUNTER 2024-08-02 12:01 | Emergency (ER) | payer OTHER, MEDICAID ==
[~2024-08-02] VITALS: Ht 157.5 cm; Wt 107.0 kg
[2024-08-02 12:04] VITALS: BP 98/40; TEMP 97.9; O2SAT 99
[2024-08-02 12:21] VITALS: PULSE 93; RESP 18; O2SAT 100
== END 2024-08-02 13:14 | disposition left against medical advice (07) ==
LOC: ER 12:01
DX: M79.602 Pain in left arm (principal); Z53.21 Procedure and treatment not carried out due to patient leaving prior to being seen by health care provider

== ENCOUNTER 2024-08-05 13:12 | Emergency (ER) | payer MEDICARE, MEDICAID ==
[~2024-08-05] VITALS: Ht 165.1 cm; Wt 105.0 kg
[2024-08-05 13:49] VITALS: BP 127/57; PULSE 96; RESP 18; TEMP 98.4; O2SAT 94
== END 2024-08-05 18:59 | disposition left against medical advice (07) ==
LOC: ER 13:31
DX: M79.89 Other specified soft tissue disorders (principal); Z53.21 Procedure and treatment not carried out due to patient leaving prior to being seen by health care provider

== ENCOUNTER 2024-08-07 08:38 | Emergency (ER) | payer MEDICARE, MEDICAID ==
[~2024-08-07] VITALS: Ht 157.5 cm; Wt 107.0 kg
[2024-08-07 08:49] VITALS: O2SAT 93
[2024-08-07 08:51] VITALS: BP 127/48; PULSE 91; RESP 18; TEMP 98.9; O2SAT 99
[2024-08-07 09:47] LABS: CLARITY URINE CLEAR (CLEAR); COLOR URINE YELLOW (YELLOW); GLUCOSE URINE 3+ (NEGATIVE); KETONES URINE NEGATIVE (NEGATIVE); LEUKOCYTE ESTERASE URINE NEGATIVE (NEGATIVE); NITRITE URINE NEGATIVE (NEGATIVE); OCCULT BLOOD URINE NEGATIVE (NEGATIVE); PROTEIN URINE NEGATIVE (NEGATIVE); SPECIFIC GRAVITY URINE 1.014 (1.005-1.030); UROBILINOGEN URINE 0.2 E.U./dL (0.2-1.0)
[2024-08-07 09:58] LABS: BACTERIA URINE 1+; RBC URINE 0-2 /hpf (0-2); SQUAMOUS EPITHELIAL CELL URINE 1+ /lpf (RARE/1+); WBC URINE 0-2 /hpf (0-2); YEAST URINE NONE SEEN
[2024-08-07 10:34] LABS: POTASSIUM 4.4 mEq/L (3.5-5.1)
[2024-08-07 10:36] LABS: CALCIUM 9.7 mg/dL (8.7-10.4)
[2024-08-07 10:38] LABS: BASOPHILS % 0.5 % (0.0-2.0); EOSINOPHILS % 2.1 % (0.0-5.0); HEMATOCRIT. 36.9 % (36.0-48.0); HEMOGLOBIN. 11.8 g/dL (12.0-16.0); LYMPHOCYTES % 23.5 % (20.0-50.0); MEAN CORPUSCULAR HEMOGLOBIN 27.3 pg (28.0-32.0); MEAN CORPUSCULAR HGB CONC 32.1 g/dL (31.0-37.0); MEAN CORPUSCULAR VOLUME 84.9 fL (81.0-99.0); MEAN PLATELET VOLUME 9.8 fl (7.4-10.4); MONOCYTES % 3.8 % (2.0-8.0); NEUTROPHILS % 70.1 % (40.0-76.0); PLATELET 317 x1000/uL (130-400); RED BLOOD CELL COUNT 4.34 mill/uL (4.2-5.4); RED CELL DISTRIBUTION WIDTH 16.2 % (11.6-14.6)
[2024-08-07 10:40] LABS: CREATININE 1.7 mg/dL (0.6-1.0)
== END 2024-08-07 12:04 | disposition home or self-care (01) ==
LOC: ER 08:38
DX: M79.89 Other specified soft tissue disorders (principal); E11.9 Type 2 diabetes mellitus without complications; I10 Essential (primary) hypertension; I25.10 Atherosclerotic heart disease of native coronary artery without angina pectoris; J44.9 Chronic obstructive pulmonary disease, unspecified; M19.90 Unspecified osteoarthritis, unspecified site; Z87.891 Personal history of nicotine dependence; Z86.718 Personal history of other venous thrombosis and embolism
CPT/HCPCS: 36415; 80048; 81003; 85025; 93005; 93971; 99284

== ENCOUNTER 2025-05-22 11:07 | Emergency (ER) | payer MEDICARE, MEDICAID ==
[~2025-05-22] VITALS: Ht 162.6 cm; Wt 114.0 kg
[2025-05-22 11:09] VITALS: TEMP 36.9; O2SAT 96
[2025-05-22 12:06] LABS: BASOPHILS % 0.4 % (0.0-2.0); EOSINOPHILS % 2.0 % (0.0-5.0); HEMATOCRIT. 37.5 % (36.0-48.0); HEMOGLOBIN. 12.0 g/dL (12.0-16.0); LYMPHOCYTES % 18.5 % (20.0-50.0); MEAN PLATELET VOLUME 9.1 fl (7.4-10.4); MONOCYTES % 3.2 % (2.0-8.0); NEUTROPHILS % 75.9 % (40.0-76.0); PLATELET 264 x1000/uL (130-400); RED BLOOD CELL COUNT 4.40 mill/uL (4.2-5.4); RED CELL DISTRIBUTION WIDTH 15.6 % (11.6-14.6)
[2025-05-22 12:20] LABS: INR 1.0
[2025-05-22 12:25] LABS: TROPONIN I HIGH SENSITIVITY 4 ng/L (3.0-34)
[2025-05-22 12:32] LABS: CLARITY URINE CLEAR (CLEAR); COLOR URINE YELLOW (YELLOW); GLUCOSE URINE 3+ (NEGATIVE); KETONES URINE NEGATIVE (NEGATIVE); LEUKOCYTE ESTERASE URINE NEGATIVE (NEGATIVE); NITRITE URINE NEGATIVE (NEGATIVE); OCCULT BLOOD URINE NEGATIVE (NEGATIVE); PH URINE 5.5 (4.5-8.0); PROTEIN URINE NEGATIVE (NEGATIVE); SPECIFIC GRAVITY URINE 1.027 (1.005-1.030); UROBILINOGEN URINE 0.2 E.U./dL (0.2-1.0)
[2025-05-22 12:45] LABS: BACTERIA URINE NONE SEEN; RBC URINE 0-2 /hpf (0-2); SQUAMOUS EPITHELIAL CELL URINE 1+ /lpf (RARE/1+); WBC URINE 0-2 /hpf (0-2); YEAST URINE 1+
[2025-05-22 13:19] LABS: CREATININE 1.0 mg/dL (0.6-1.0); UREA NITROGEN BLOOD 22 mg/dL (9-23)
[2025-05-22 13:21] LABS: ASPARTATE AMINOTRANSFERASE 18 IU/L (<34); BILIRUBIN DIRECT 0.2 mg/dL (<=3.0); BILIRUBIN TOTAL 0.4 mg/dL (0.1-1.0); PROTEIN TOTAL 6.9 g/dL (6.0-8.3)
[2025-05-22] MEDS ORDERED: LEVO750T68 MT (13:53)
[2025-05-22] MEDS: LEVOFLOXACIN 250MG TABLET PO ONE (14:23)
[2025-05-22 15:00] VITALS: BP 128/67; PULSE 86; RESP 18; O2SAT 95
== END 2025-05-22 15:10 | disposition home or self-care (01) ==
LOC: ER 12:30 → CMPBEDREQ 05-23 07:22
DX: J18.9 Pneumonia, unspecified organism (principal); R06.02 Shortness of breath; E11.9 Type 2 diabetes mellitus without complications; F20.9 Schizophrenia, unspecified; I27.20 Pulmonary hypertension, unspecified; I10 Essential (primary) hypertension; J44.9 Chronic obstructive pulmonary disease, unspecified; Z90.710 Acquired absence of both cervix and uterus; Z96.659 Presence of unspecified artificial knee joint; Z99.81 Dependence on supplemental oxygen; Z79.01 Long term (current) use of anticoagulants; Z79.84 Long term (current) use of oral hypoglycemic drugs; Z79.899 Other long term (current) drug therapy
CPT/HCPCS: 36415; 71045; 80048; 80076; 81003; 83880; 84484; 85025; 93005; 99285